=== PATIENT | female | born 1945 | race Caucasian/White ===

== ENCOUNTER 2018-10-06 03:28 | Inpatient (IN) ==
--- NOTE | 2018-09-28 09:35 | EKG Report ---
Test Performed on : 09/28/2018 09:29:04 AM Test Reason : PAT Blood Pressure : / mmHG Vent. Rate : 078 BPM Atrial Rate : 078 BPM P-R Int : 158 ms QRS Dur : 096 ms QT Int : 402 ms P-R-T Axes : 084 042 066 degrees QTc Int : 458 ms Normal sinus rhythm. Right atrial enlargement Incomplete right bundle branch block Septal infarct , age undetermined Abnormal ECG No previous ECGs available Confirmed by Woody Nova MD ([id number]) on 09/29/2018 6:35:35 AM
[2018-09-28 09:50] LABS: URINE SOURCE CLEAN CATCH
[2018-09-28 09:53] LABS: BASO# 0.02 X1000 (0.0-0.2); BASO% 0.2 % (0.0-0.8); EOS% 1.8 % (0.0-10.0); HEMATOCRIT 37.3 % (37.0-47.0); HEMOGLOBIN 11.5 g/dL (12.0-16.0); IMM GRAN# 0.03 X1000 (0.0-0.04); IMM GRAN% 0.3 % (0.0-0.5); LYMPH# 1.59 X1000 (1.2-3.4); LYMPH% 14.6 % (20.5-51.1); MCHC 30.8 g/dL (33-37); MCV 84.2 FL (81-99); MONO# 0.63 X1000 (0.11-0.59); MONO% 5.8 % (1.7-9.3); MPV 8.3 FL (7.4-10.4); NEUT# 8.45 X1000 (1.4-6.5); NEUT% 77.3 % (42.2-75.2); PLT 491 X1000 (130-400); RBC 4.43 XMIL (4.2-5.4); RDW 17.2 % (11.5-14.5); WBC 10.92 X1000 (4.8-10.8)
[2018-09-28 09:55] LABS: BILIRUBIN URINE NEGATIVE (NEGATIVE); BLOOD URINE NEGATIVE (NEGATIVE); COLOR YELLOW; GLUCOSE URINE NEGATIVE (NEGATIVE); KETONE URINE NEGATIVE (NEGATIVE); LEUKOCYTES URINE NEGATIVE (NEGATIVE); NITRITE URINE NEGATIVE (NEGATIVE); PROTEIN URINE TRACE mg/dL (NEGATIVE); SP GRAVITY URINE 1.005; TURBIDITY URINE CLEAR (CLEAR); UROBILINOGEN URINE NORMAL (NORMAL)
[2018-09-28 09:56] LABS: UR EPITHELIAL CELLS <10 /HPF (<10); URINE BACTERIA NEGATIVE /HPF; URINE RBC <10 /HPF (<10); URINE WBC <10 /HPF (<10)
[2018-09-28 10:06] LABS: INR 0.87; PROTIME 12.6 Seconds (11.0-16.0)
[2018-09-28 10:07] LABS: PTT 26.4 Seconds (22.3-41.8)
[2018-09-28 10:20] LABS: AGAP 12; BUN 10 mg/dL (8-22); CALCIUM 9.6 mg/dL (8.8-10.2); CHLORIDE 98 mmol/L (98-107); COSMO 274; CREATININE 0.7 mg/dL (0.5-0.9); ESTIMATED GFR > 60; GLUCOSE 112 mg/dL (70-104); SODIUM 137 mmol/L (136-145); TCO2 27 mmol/L (25-35)
[2018-10-06] MEDS ORDERED: PEPCID ONE (07:15)
[2018-10-06] MEDS ORDERED: REGLAN ONE (07:15)
[2018-10-06] MEDS ORDERED: COLACE ONE (07:15)
[2018-10-06] MEDS ORDERED: LYRICA ONE (07:16)
[2018-10-06] MEDS ORDERED: CELEBREX ONE (07:17)
[2018-10-06] MEDS ORDERED: LR 1,000 ML ONE (07:17)
[2018-10-06] MEDS ORDERED: KEFZOL 1 GM/D5W 1 GM/50 ML IVPB ONE (07:17)
[2018-10-06] MEDS ORDERED: SODIUM CHLORIDE 0.9% 10 ML ONE ×2 (07:49→09:36)
[2018-10-06] MEDS ORDERED: NORCURON ONE (07:49)
[2018-10-06] MEDS ORDERED: DIPRIVAN 1% ONE (07:49)
[2018-10-06] MEDS ORDERED: QUELICIN (DOSE) ONE (07:49)
[2018-10-06] MEDS ORDERED: XYLOCAINE-MPF 2% ONE (07:49)
[2018-10-06] MEDS ORDERED: SENSORCAINE-MPF 0.5%/EPI 1:200,000 ONE (08:05)
[2018-10-06] MEDS ORDERED: DURAMORPH ONE (08:05)
[2018-10-06] MEDS ORDERED: SODIUM CHLORIDE 0.9% ONE (08:05)
[2018-10-06] MEDS ORDERED: VANCOMYCIN ONE (08:05)
[2018-10-06] MEDS ORDERED: CYKLOKAPRON 1,000 MG/NS 1,000 MG/100 ML IVPB ONE (08:05)
[2018-10-06] MEDS ORDERED: TORADOL ONE (08:05)
[2018-10-06] MEDS ORDERED: EXPAREL 1.3% ONE (08:06)
[2018-10-06] MEDS ORDERED: NEOSPORIN G.U. IRRIGANT ONE (08:06)
[2018-10-06] MEDS ORDERED: DECADRON ONE (08:52)
[2018-10-06] MEDS ORDERED: ZOFRAN ONE (08:52)
[2018-10-06] MEDS ORDERED: OFIRMEV 1000 MG/ISOTONIC SOLN 1,000 MG/100 ML BOTTLE ONE (08:52)
[2018-10-06] MEDS ORDERED: DILAUDID ONE (09:07)
[2018-10-06] MEDS ORDERED: EPHEDRINE ONE (09:16)
[2018-10-06] MEDS ORDERED: NEO-SYNEPHRINE ONE (09:36)
[2018-10-06] MEDS ORDERED: ROBINUL ONE ×2 (09:51)
[2018-10-06] MEDS ORDERED: NEOSTIGMINE ONE (09:57)
[2018-10-06] MEDS ORDERED: NS 1,000 ML ONE (10:32)
--- NOTE | 2018-10-06 10:33 | OPERATIVE NOTE ---
PROCEDURE DATE: 10/06/2018 PREOPERATIVE DIAGNOSIS: Right glenohumeral arthritis. POSTOPERATIVE DIAGNOSIS: Right glenohumeral arthritis. PROCEDURE: Right reverse total shoulder arthroplasty with DePuy Delta XTEND size 12 press-fit stem, a 38, +6 humeral cup, a 38 eccentric glenosphere, and a standard metaglene. SURGEON: Edenilson Campos MD HOME IMPROVEMENT CONTRACTOR: LEAH Melgoza SECOND CHEMICAL PRODUCTION MACHINE OPERATOR: Walter Grant RN ANESTHESIA: General. IV FLUIDS: 1500 mL lactated Ringer's. ESTIMATED BLOOD LOSS: 100 mL. COMPLICATIONS: None. INDICATION: The patient is a 73-year-old female with a chronic history of pain and discomfort in her right shoulder. X-rays revealed significant degenerative arthritis, and recommendation to proceed with right reverse shoulder arthroplasty was offered. Risks and benefits of surgery were explained, including the risks of anesthesia, , bleeding, infection, failure to relieve pain, postoperative stiffness, nerve injury, blood clots, and other imponderables. All questions were answered. The patient wished to proceed with surgery. DETAILS OF OPERATION: The patient was taken to the operating room and placed supine on the operating table. Once adequate anesthesia was obtained, the patient was placed in semi-Mariano beach-chair position. The right shoulder was subsequently prepped and draped in the usual sterile fashion. A standard deltopectoral incision was made with skin knife. Hemostasis was obtained using electrocautery. Deltopectoral incision was then made. The hemostasis was attained electrocautery. The deltopectoral interval was then developed. Retractors were then placed. Attention was then turned to the subscapularis tendon and stay sutures placed. Approximately 1 cm medial to its insertion, this was released. After this had been performed, the intramedullary guide was placed in the proximal humerus after releasing the superior and posterior superior aspects of the rotator cuff. A starting reamer was passed. Intramedullary guide with [*]cutting block was pinned in position. The humeral head was then resected. A protective disk was then placed. Attention was then turned to the glenoid. Circumferential dissection was performed. The patient has significant degenerative arthritic changes. A guide was then placed in position and guide pin was placed. Reaming was then conducted, followed by a standard metaglene. This was impacted into position. One locking screw and 3 nonlocking screws were placed and had excellent purchase. The wound was copiously irrigated. A 38 eccentric glenosphere was then placed with the eccentricity placed inferiorly. Attention was then turned to the intramedullary canal. Intramedullary guide was placed in position in approximately 15 degrees retroversion. Reaming was then conducted proximally. Copious irrigation was then performed with antibiotic pulsatile lavage. A size 10 press-fit stem was then placed and had excellent purchase. After this had been performed, the trial cup was sized. A 38, +6 humeral cup appeared to the correct size. The. The trial cup was removed. The wound was copiously irrigated once again. A 38, +6 humeral cup was then placed and the shoulder was reduced, carried through range of motion, and had good range of motion and good stability. Exparel was placed in the deep soft tissue. A #2 FiberWire was then used to repair the subscapularis tendon in an interrupted fashion after irrigation had been conducted. The remaining portion of the Exparel was then placed in the deep soft tissue, as well as the subcutaneous tissue. The wound was copiously irrigated once again. A 2-0 Vicryl then used the subcutaneous tissue, followed by running 2-0 Prolene. Benzoin and Steri-Strips were applied. Adaptic, sterile 4x4's, ABD pad, and tape were applied to the right shoulder, followed by a sterile immobilizer. All counts were correct. Patient tolerated the procedure and was transferred to the recovery room in stable condition. cc: Edenilson Campos MD
[2018-10-06 10:56] LABS: URINE SOURCE CATH
[2018-10-06 11:01] LABS: BILIRUBIN URINE NEGATIVE (NEGATIVE); BLOOD URINE NEGATIVE (NEGATIVE); COLOR YELLOW; GLUCOSE URINE NEGATIVE (NEGATIVE); KETONE URINE NEGATIVE (NEGATIVE); LEUKOCYTES URINE NEGATIVE (NEGATIVE); NITRITE URINE NEGATIVE (NEGATIVE); PROTEIN URINE NEGATIVE (NEGATIVE); SP GRAVITY URINE 1.009; TURBIDITY URINE CLEAR (CLEAR); UR EPITHELIAL CELLS <10 /HPF (<10); URINE BACTERIA NEGATIVE /HPF; URINE RBC <10 /HPF (<10); URINE WBC <10 /HPF (<10); UROBILINOGEN URINE NORMAL (NORMAL)
--- NOTE | 2018-10-06 11:14 | Diag Imaging Result Doc PS360 ---
EXAM: SHOULDER 1 VIEW RIGHT HISTORY: post op TECHNIQUE: Portable right shoulder single view COMPARISON: 12/20/2014 FINDINGS: There has been orthopedic replacement of the right shoulder since the prior exam. Good positioning in the glenoid. No separation at the common clavicular joint. Electronically signed by Kvng Macdonald 10/06/2018 11:12 AM
[2018-10-06] MEDS ORDERED: ZOFRAN PO PRN (12:30)
[2018-10-06] MEDS ORDERED: MORPHINE IV PRN ×3 (12:30)
[2018-10-06] MEDS ORDERED: OXY IR PO PRN ×2 (12:30)
[2018-10-06] MEDS ORDERED: CYKLOKAPRON 1,000 MG in NS 100 ML IV ONE (15:00)
[2018-10-06] MEDS ORDERED: ROBAXIN PO PRN (15:44)
[2018-10-06] MEDS ORDERED: ZOFRAN ODT PO PRN (15:44)
[2018-10-06] MEDS: KEFZOL 1 GM/D5W 1 GM/50 ML IVPB IV SCH ×2 (16:25→23:39)
[2018-10-06] MEDS: NS 1,000 ML IV SCH ×2 (16:38→23:40)
[2018-10-06] MEDS: PERIDEX MT SCH (20:26)
[2018-10-06] MEDS ORDERED: LIPITOR PO SCH (21:00)
--- NOTE | 2018-10-07 06:23 | PROGRESS NOTE ---
DATE: 10/07/2018 SUBJECTIVE: The patient is a pleasant 73-year-old female who is 1 day status post right reverse shoulder arthroplasty. She is currently resting comfortably. OBJECTIVE: On physical exam, the patient's right upper extremity dressing is intact. She is neurovascularly intact distally. Good micro paleontologist strength. LABS: Pending. IMPRESSION: Postoperative day #1 status post right reverse shoulder arthroplasty. PLAN: At this point, we will change her dressing and will plan on discharging home. We will arrange for home physical therapy. The patient will follow up in the office on 10/18/2018. cc: Edenilson Campos MD
[2018-10-07 06:36] LABS: HEMATOCRIT 29.9 % (37.0-47.0); HEMOGLOBIN 9.2 g/dL (12.0-16.0)
[2018-10-07 06:55] LABS: AGAP 12; BUN 12 mg/dL (8-22); CALCIUM 8.4 mg/dL (8.8-10.2); CHLORIDE 102 mmol/L (98-107); COSMO 273; CREATININE 0.7 mg/dL (0.5-0.9); ESTIMATED GFR > 60; GLUCOSE 89 mg/dL (70-104); POTASSIUM 4.3 mmol/L (3.5-5.1); SODIUM 137 mmol/L (136-145); TCO2 23 mmol/L (25-35)
[2018-10-07 07:21] VITALS: BP 156/84
[2018-10-07] MEDS: PERIDEX MT SCH (08:06)
[2018-10-07] MEDS ORDERED: HYZAAR 50/12.5 MG PO SCH (09:00)
[2018-10-07] MEDS ORDERED: PEPCID PO SCH (09:00)
== END 2018-10-07 12:05 | disposition home health service (06) | DRG 483 ==
LOC: SURHOLD 03:28 → 4N 08:47
PROVIDERS: ADMIT Orthopaedic Surgery Adult Reconstructive Orthopaedic Surgery; ATTEND Orthopaedic Surgery Adult Reconstructive Orthopaedic Surgery
CPT/HCPCS: 73020; 80048; 81001; 85014; 85018; 85025; 85610; 85730; 86850; 86900; 86901; 93005; 93010; 94761; 94799; 97162; 97530; A9270; C9290; J0131; J0330; J0690; J1100; J1170; J1885; J2274; J2275; J2370; J2405; J3370; J7030; J7120; Q9974

== ENCOUNTER 2018-11-27 19:34 | Inpatient (IN) ==
[2018-11-27] MEDS ORDERED: ZOFRAN IV ONE (21:35)
[2018-11-27] MEDS ORDERED: NS 1,000 ML IV ONE (21:36)
[2018-11-27] MEDS ORDERED: ASPIRIN PO ONE (21:47)
[2018-11-27 22:05] LABS: BASO# 0.01 X1000 (0.0-0.2); BASO% 0.1 % (0.0-0.8); HEMATOCRIT 42.2 % (37.0-47.0); HEMOGLOBIN 13.7 g/dL (12.0-16.0); LYMPH# 0.62 X1000 (1.2-3.4); LYMPH% 7.1 % (20.5-51.1); MCH 25.7 PG (27-31); MCHC 32.5 g/dL (33-37); MONO# 0.28 X1000 (0.11-0.59); MONO% 3.2 % (1.7-9.3); MPV 8.8 FL (7.4-10.4); NEUT# 7.82 X1000 (1.4-6.5); NEUT% 89.6 % (42.2-75.2); PLT 466 X1000 (130-400); RBC 5.34 XMIL (4.2-5.4); RDW 16.1 % (11.5-14.5); WBC 8.73 X1000 (4.8-10.8)
--- NOTE | 2018-11-27 22:22 | Diag Imaging Result Doc PS360 ---
CHEST-2 VIEWS - 11/27/2018 INDICATION: cp COMPARISON: None FINDINGS: The lungs are normally expanded and clear. Heart size and mediastinal contours are normal. No pneumothorax or pleural effusion. IMPRESSION: Negative exam. Electronically signed by Evangelist Donohue 11/27/2018 10:20 PM
[2018-11-27 22:24] LABS: AGAP 20; ALB/GLOB RATIO 1.5; ALBUMIN 5.1 g/dL (3.5-5.0); ALKALINE PHOSPHATASE 116 U/L (32-104); BUN 13 mg/dL (8-22); CALCIUM 10.2 mg/dL (8.8-10.2); CHLORIDE 91 mmol/L (98-107); COSMO 273; CREATININE 0.6 mg/dL (0.5-0.9); ESTIMATED GFR > 60; GLUCOSE 152 mg/dL (70-104); GOT 27 U/L (10-30); GPT 20 U/L (10-36); LIPASE 32 U/L (13-60); POTASSIUM 3.6 mmol/L (3.5-5.1); SODIUM 135 mmol/L (136-145); TCO2 24 mmol/L (25-35); TOTAL BILIRUBIN 0.45 mg/dL (0.20-1.00); TOTAL PROTEIN 8.6 g/dL (6.3-8.3)
[2018-11-27 22:34] LABS: INR 0.9; PROTIME 12.9 Seconds (11.0-16.0)
[2018-11-27 22:35] LABS: PTT 24.7 Seconds (22.3-41.8)
[2018-11-27 22:43] LABS: CK INDEX 3.1 (0.0-2.5); CK-MB 10.99 ng/mL (0.0-5.0)
[2018-11-27] MEDS ORDERED: LABETALOL IV ONE (23:04)
[2018-11-28] MEDS ORDERED: SODIUM CHLORIDE 0.9% INJ ONE (00:07)
[2018-11-28] MEDS ORDERED: PHENERGAN IV ONE (00:07)
[2018-11-28] MEDS ORDERED: REGLAN IV ONE (00:13)
[2018-11-28] MEDS ORDERED: VASOTEC IV ONE (00:13)
--- NOTE | 2018-11-28 00:16 | PROVIDER DOCUMENTATION ---
This chart was entered by Holly Michelle Scribe, acting as scribe for Josephine Estrada MD. HPI-Abdominal Pain/GI Problem - General Chief Complaint: Vomiting Stated Complaint: VOMITING Time Seen by Provider: 11/27/18 21:31 Source: patient Allergies/Adverse Reactions: Patient Allergies Allergy/AdvReac Type Severity Reaction Status Date / Time hydrocodone AdvReac VOMITING Verified 09/28/18 09:11 meperidine [From Demerol] AdvReac VOMITING Verified 07/26/18 20:49 Home Medications: Home Medication List Medication Instructions Recorded Confirmed Last Taken Type Ondansetron Odt [Zofran Odt] 4 mg PO Q6H PRN PRN #20 tab 07/26/18 10/06/18 10/05/18 11:00 Rx ATORVAstatin [Lipitor] 20 mg PO QHS 09/28/18 10/06/18 10/05/18 22:00 History Famotidine 20 mg PO DAILY 09/28/18 10/06/18 10/05/18 22:00 History Ibuprofen 800 mg PO PRN PRN 09/28/18 09/28/18 Unknown History Losartan/Hydrochlorothiazide 1 each PO DAILY 09/28/18 10/06/18 10/05/18 22:00 History [Hyzaar 50-12.5 Tablet] Methocarbamol 750 mg PO PRN PRN 09/28/18 10/06/18 10/05/18 15:00 History Tramadol [Ultram] 50 mg PO Q6H PRN PRN 09/28/18 10/06/18 10/05/18 15:00 History Docusate Sodium [Colace] 100 mg PO BID #40 capsule 10/07/18 Unknown Rx Oxycodone I.r. [Oxy Ir] 5 mg PO Q4-6H PRN PRN #40 capsule 10/07/18 Unknown Rx - History of Present Illness-ABD Nature of Presenting Problems: Pt is 73/F presenting to ED w/ n/v x8 since 11am this morning. Still feels nauseous. No C/P, no diaphoresis Abdominal Pain Onset Location: reports: epigastric Pain Radiation: reports: no radiation Quality of Pain: reports: other (nauseous) Severity in ED: reports: moderate Onset/Duration: reports: this morning Timing: reports: still present Activities at Onset: reports: none Exposure to sick contacts?: No Modifying Factors: improves with: nothing Associated Symptoms: reports: nausea, vomiting. denies: diarrhea, fever/chills Last BM: unsure Dark Stools Present?: reports: none noticed Rectal Bleeding: reports: none Rectal Pain: reports: none Emesis Description: reports: none Bruising or Bleeding Gums?: No Similar Symptoms Previously?: No Recently seen or treated by another doctor?: No Review of Systems - Adult - REVIEW OF SYSTEMS - ADULT Constitutional: reports: no symptoms reported. denies: chills, fever Eyes: reports: no symptoms reported Ears, Nose, Mouth & Throat: reports: no symptoms reported Cardiovascular: reports: no symptoms reported Respiratory: reports: no symptoms reported. denies: cough, shortness of breath, wheezing Gastrointestinal: reports: no symptoms reported, nausea, vomiting. denies: abdominal pain, diarrhea Genitourinary: reports: no symptoms reported Musculoskeletal: reports: no symptoms reported Integumentary: reports: no symptoms reported Neurological: reports: no symptoms reported. denies: dizziness/vertigo, headache/migraines Psychiatric: reports: no symptoms reported Endocrine: reports: no symptoms reported Hematologic/Lymphatic: reports: no symptoms reported Allergic/Immunologic: reports: no symptoms reported All Other Systems: Reviewed and Negative Past History - Adult - PAST MEDICAL HISTORY-ADULT Review of Records: reports: Old Records Reviewed, Nursing Assessment Review, Medications Reviewed, Social history reviewed & non-contributory. Major Childhood Illnesses: reports: denies history Cardiovascular: reports: denies history Respiratory: reports: denies history Gastrointestinal: reports: denies history Obstetrical/Gynecological: reports: denies history Genitourinary: reports: denies history Musculoskeletal: reports: denies history Neurological: reports: denies history Psychiatric: reports: denies history Endocrine/Immune: reports: denies history - PRIOR SURGERIES/PROCEDURES Surgical/Procedure History: reports: appendectomy, cholecystectomy, hysterectomy , tonsillectomy - SOCIAL HISTORY Smoking: quit greater than 1 year Substance Use: alcohol Alcohol Use Frequency: every day Number of drinks per typical drinking period:: 2 drinks Physical Exam-General - PHYSICAL EXAM-ADULT Initial Vital Signs Reviewed: Yes - CONSTITUTIONAL General Appearance: appears well, alert, no apparent distress - EYES Eyes: PERRL/EOMI, pink conjunctivae - HEAD, EARS, NOSE, MOUTH & THROAT HENMT: normocephalic/atraumatic, moist mucous membranes, normal ENT inspection, TMs normal, pharynx normal - NECK Neck: non-tender, full range of motion, supple, normal inspection - RESPIRATORY Respiratory: lungs clear - CARDIOVASCULAR Cardiovascular: regular rate, rhythm - GASTROINTESTINAL (ABDOMEN) Abdominal Exam: normal bowel sounds, non tender, soft - LYMPHATIC Lymphatic: no adenopathy - MUSCULOSKELETAL Back Exam: normal inspection, no CVA tenderness, no vertebral tenderness Extremity: normal range of motion, non-tender, normal gait, normal inspection - SKIN Integumentary: normal color, warm/dry - NEUROLOGIC Neurologic: grossly normal - PSYCHIATRIC Psych/Mental Status: normal mood/affect, normal thought content, normal thought process, oriented x 3 Progress - PLAN OF CARE/RESULTS Progress/Plan/Lab Results: Vital Signs - 8 hr 11/27/18 19:39 11/27/18 21:17 11/27/18 21:31 Temperature 97.8 F Pulse Rate 108 H Respiratory Rate 20 Blood Pressure 203/102 216/119 158/140 O2 Sat by Pulse Oximetry 96 99 99 Laboratory Results - last 24 hr 11/27/18 21:30 WBC 8.73 RBC 5.34 Hgb 13.7 Hct 42.2 MCV 79.0 L MCH 25.7 L MCHC 32.5 L RDW Std Deviation 16.1 H Plt Count 466 H MPV 8.8 Immature Gran % (Auto) 0.0 Neut % (Auto) 89.6 H Lymph % (Auto) 7.1 L [place] % (Auto) 3.2 Eos % (Auto) 0.0 Baso % (Auto) 0.1 Immature Gran # (Auto) 0.00 Neut # (Auto) 7.82 H Lymph # (Auto) 0.62 L [place] # (Auto) 0.28 Eos # (Auto) 0.00 Baso # (Auto) 0.01 Orders Category Date Time Status Cardiac Monitoring DIRECTED Care 11/27/18 21:47 Active Oxygen Therapy- ED Nursing DIRECTED Care 11/27/18 21:47 Active Saline Loc NOW Care 11/27/18 21:47 Active CHEST-2 VIEWS [RAD] Stat Exams 11/27/18 21:[address] ABD/PELVIS W/IV CONT ONLY [CT] Stat Exams 11/27/18 21:36 Ordered CBC WITH ELECTRONIC DIFF [HEME] Stat Lab 11/27/18 21:30 Completed CK PROFILE [SP CHEM] Stat Lab 11/27/18 21:30 Received COMPREHENSIVE METABOLIC PANEL [CHEM] Stat Lab 11/27/18 21:30 Received LIPASE [CHEM] Stat Lab 11/27/18 21:30 Received PROTIME WITH INR [COAG] Stat Lab 11/27/18 21:30 Received PTT [COAG] Stat Lab 11/27/18 21:30 Received TROPONIN T Stat Lab 11/27/18 21:30 Received 0.9% Sodium Chloride Inj [Ns] 1,000 ml Med 11/27/18 21:36 Active IV 999 mls/hr Aspirin Med 11/27/18 21:47 Discontinued 325 mg PO NOW ONE Ondansetron [Zofran] Med 11/27/18 21:35 Discontinued 4 mg IV NOW ONE CP/SOB/Palp >45 yrs of Age Stat Oth 11/27/18 21:47 Ordered EKG [EKG] Stat Ther 11/27/18 21:47 Ordered Result Diagrams: 11/27/18 21:30 11/27/18 21:30 - REASSESSMENT Reassessment #1 Time Reassessed: 00:16 (continued with vomting despite zofran. bp still elevated after labetolol. will admit pt. ) Status: unchanged - EKG 1 Time of EKG reading by physician:: 21:48 EKG Read and Signed by:: Josephine Estrada EKG Interpretation (*Must complete 3 of following elements*): Abnormal (Normal sinus rhythm, Left axis deviation, Left ventricular hypertrophy with repolarization abnormality. Prolonged QT. Abnormal ECG) Rate: 94 Rhythm: sinus [place]: normal - XRAY 1 XRAY: Bilateral XRAY Study: Chest Impression: Normal (IMPRESSION: Negative exam. Electronically signed by Evangelist Donohue 11/27/2018 10:20 PM 11/27/180) Departure - Departure Date of Disposition Decision: 11/28/18 Time of Disposition Decision: 00:15 DIAGNOSIS: Intractable nausea and vomiting, Hypertensive urgency Disposition: ADMITTED INPATIENT 09 Certified Medical Emergency: Emergent Condition: Fair Referrals and Follow-Ups: Radha Ramos MD [Primary Care Provider] - - Critical Care Note This patient required my direct & personal management of CC.: No Attestation - Physician/ NICK Attestation Patient care was provided by Advanced Practice Provider:: No The physician spent face to face time with patient:: Yes Advanced Practice Provider documentation review:: Supervising physician onsite and consulted in the evaluation and care of this patient. The physician did have a face to face encounter with the patient. This chart was documented by the indicated scribe, (Holly Michelle, Luisibe) and accurately reflects the services I performed and decisions made by me, Josephine Estrada MD, as attested by the provider's signature.
[2018-11-28] MEDS ORDERED: ATIVAN IV ONE (00:32)
[2018-11-28] MEDS ORDERED: CATAPRES PO PRN (02:11)
--- NOTE | 2018-11-28 05:02 | HISTORY AND PHYSICAL ---
PRIMARY CARE PHYSICIAN: Dr. Ramos. CHIEF COMPLAINT: Nausea and vomiting. HISTORY OF PRESENTING ILLNESS: A 73-year-old female with a history of hypertension and hyperlipidemia, who presented to emergency department with 1-day history of having intractable nausea, vomiting. Patient states that it was not improving. She felt weak. Subsequently had come to the emergency department. In the ED, she was evaluated. She received antiemetics. However, she did not have any significant improvement, still was nauseated. It was also noted that her blood pressure was markedly elevated. She was put on antihypertensive agents. However, she will require admission for further monitoring. At the time of my examination, she denied any headache, fever, chills, chest pain, shortness of breath, hemoptysis or weight changes, but complained of nausea, vomiting. PAST MEDICAL HISTORY: Includes hypertension, hyperlipidemia. PAST SURGICAL HISTORY: Right total knee arthroplasty, right shoulder arthroplasty, hysterectomy and appendectomy. ALLERGIES: Demerol and codeine. CURRENT MEDICATIONS: Include Lipitor 20 mg p.o. at bedtime, famotidine 20 mg p.o. daily, Losartan HCT 50/12.5 one p.o. daily, methocarbamol 750 mg p.o. daily, oxycodone 5 mg p.o. q.4-6 hours p.r.n., tramadol 50 mg p.o. q.6 hours. SOCIAL HISTORY: She denies any history of smoking. Admits to drinking vodka about 3 glasses daily. Denies any illicit drug use. FAMILY HISTORY: No history of coronary artery disease. REVIEW OF SYSTEMS: Fourteen point review of systems as listed in HPI. Other systems negative. PHYSICAL EXAMINATION: GENERAL: Cooperative, friendly female. She is resting more comfortably now. VITAL SIGNS: Temperature 97.8 degrees, pulse 108, respirations 20, blood pressure 203/102, repeat then was 158/140. HEENT: Atraumatic, normocephalic. Extraocular movements intact. PERRLA. NECK: No masses. CHEST: Clear to auscultation. CARDIOVASCULAR: Regular rate and rhythm. ABDOMEN: Soft. Positive bowel sounds. EXTREMITIES: No edema. NEUROLOGIC: She is awake, alert, oriented x3. GENITOURINARY: No bladder distention. SKIN: Warm. LABORATORIES AND STUDIES: WBCs 8.73, hemoglobin 13.7, hematocrit 42.2, platelets 466,000. Sodium 135, potassium 3.6, chloride 91, CO2 24, BUN is 13, creatinine 0.6, glucose 152. Troponin 0.010. ASSESSMENT: A 73-year-old female with a history of hypertension and hyperlipidemia presented to the emergency department with 1-day history of having persistent intractable nausea, vomiting. She was evaluated in the emergency department. It was also noted that her blood pressure was markedly elevated. Due to these findings, it was thought that she would require admission for further management. 1. Intractable nausea, vomiting. 2. Hypertension, uncontrolled. PLAN: 1. We will admit patient to medical floor with telemetry. 2. We will continue with supportive treatment with gentle hydration, antiemetics. 3. We will monitor blood pressure closely. Resume antihypertensive agent. 4. Put patient on DVT prophylaxis with SCD. 5. We will continue to follow, reassess and make further recommendation based on patient's clinical course. cc: Zach Gifford MD
--- NOTE | 2018-11-28 08:52 | Diag Imaging Result Doc PS360 ---
CT ABD/PELVIS W/IV CONT ONLY - 11/27/2018 INDICATION: abd pain COMPARISON: None FINDINGS: The lung bases are clear and the heart size is normal. There is a solitary right kidney. There are several benign right renal cysts measuring up to 2.7 cm. No renal stones or obstruction. Otherwise all abdominal organs are normal. No bowel obstruction or inflammation. Normal appendix. Mild diverticulosis of the sigmoid colon. There is advanced vascular disease of the distal abdominal aorta and its pelvic branches. Uterus is absent. Urinary bladder and rectum are normal. 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 IMPRESSION: Solitary right kidney. Diverticulosis coli. No acute process. This exam was performed using automated exposure control, adjustment of mA or kV according to patient size, and/or use of iterative reconstruction technique Electronically signed by Evangelist Donohue 11/28/2018 8:50 AM
[2018-11-28] MEDS ORDERED: DULCOLAX PR ONE (09:51)
[2018-11-28] MEDS ORDERED: ZOFRAN IV PRN (09:53)
[2018-11-28 10:15] LABS: FERRITIN 85 ng/mL (13-150)
[2018-11-28 10:17] LABS: IRON SATURATION 6 %; TIBC 385 ug/dL; TOTAL IRON 25 ug/dL (49-151); UNBOUND IRON 360 ug/dL (112-346)
--- NOTE | 2018-11-28 11:04 | PROGRESS NOTE ---
DATE: 11/28/2018 SUBJECTIVE: Ms. Jacobs was admitted early this morning. She presented with a 2-day history of intractable nausea and vomiting. Ms. Jacobs is a 73-year-old female who follows up with Dr. Ramos for cholesterol and hypertension management. She refers to be chronically constipated and uses Colace every now and then. She said since yesterday, she has been remarkably nauseated and has been vomiting multiple times. She came to the emergency department where she was admitted for intractable nausea and vomiting. This morning, she has not had any vomiting. OBJECTIVE: Her vital signs are blood pressure 147/98, pulse is 95, respirations 20, temperature 99.0. The patient is saturating 99% on room air. General: Ms. Jacobs is a 73-year-old female. She is in bed. Mucosa is pink but dry. Anicteric and acyanotic. Neck is supple. Chest: Good air entry bilaterally. No crepitations. No rhonchi. Cardiovascular: Regular rate and rhythm. There is no murmur, no rub and no gallop. GI: Abdomen is soft. It is nontender. Bowel sounds present. Extremities: No pedal edema. Distal pulses present. TIRE BALANCER: The patient is awake, alert and oriented. There is no focal neurological deficit. DIAGNOSTIC DATA: No laboratory data for today. Yesterday's lab work has been reviewed. IMAGING STUDIES: A CT scan of the abdomen and pelvis shows solitary right kidney, diverticulosis, no acute process. I think there is some constipation as well which was not reported. A chest x-ray was unremarkable except for recent right shoulder arthroplasty. ASSESSMENT: 1. Intractable nausea and vomiting. Seems to be a lot better on current management. 2. Chronic constipation. We instituted the patient on bowel regimen. 3. Chronic NSAID use, concerning for possible gastritis/possible PUD. The patient has been counseled about the side effects of the ibuprofen and has been recommended only Tylenol, and we started her on PPI. If her GI symptoms do not get any better, we will ask GI to evaluate her for possible EGD. 4. Uncontrolled hypertension. The patient has been started on her home medication; however, we have held to hydrochlorothiazide. 5. Clinical volume depletion secondary to gastrointestinal loss. We started the patient on gentle IV fluids and will reevaluate her hydration status in the morning. 6. History of solitary kidney. 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 The patient is not able to elaborate more on that. The right kidney on the imaging seems to be fairly normal with some cysts. We will avoid any nephrotoxin. The patient's kidney function seems to be fairly normal. 7. Microcytosis, questionable for underlying iron deficiency. We will do iron studies. 8. Advanced atherosclerosis of the splenic arteries. The patient is on statin drugs. 9. Dyslipidemia. We will continue with home medications. PLAN: In general, Ms. Jacobs seems to be doing a lot better this morning. We are going to start her on full liquid diet and see if she is able to tolerate it. We will start her on IV PPI and bowel regimen. Reevaluate her in the morning and make changes accordingly. If her GI symptoms do not get improvement with initial management, we will get GI to evaluate her. cc: Héctor Hernandez MD
[2018-11-28] MEDS ORDERED: VENOFER 200 MG in NS 100 ML IV ONE (13:53)
[2018-11-28] MEDS: CULTURELLE PO SCH ×2 (14:13→22:23)
[2018-11-28] MEDS: SODIUM CHLORIDE 0.9% INJ SCH (14:13)
[2018-11-28] MEDS: MIRALAX PO SCH (14:13)
[2018-11-28] MEDS: PROTONIX IV SCH (14:13)
[2018-11-28] MEDS: PRINIVIL PO SCH (14:14)
[2018-11-28 14:15] LABS: URINE SOURCE CLEAN CATCH
[2018-11-28] MEDS: NS 1,000 ML IV SCH (14:21)
[2018-11-28 14:27] LABS: BILIRUBIN URINE NEGATIVE (NEGATIVE); BLOOD URINE MODERATE (NEGATIVE); COLOR YELLOW; GLUCOSE URINE 70 mg/dL (NEGATIVE); KETONE URINE 20 mg/dL (NEGATIVE); LEUKOCYTES URINE NEGATIVE (NEGATIVE); NITRITE URINE NEGATIVE (NEGATIVE); PH URINE 7.5; PROTEIN URINE 600 mg/dL (NEGATIVE); SP GRAVITY URINE 1.024; TURBIDITY URINE CLEAR (CLEAR); UROBILINOGEN URINE NORMAL (NORMAL)
[2018-11-28 14:28] LABS: UR EPITHELIAL CELLS <10 /HPF (<10); URINE BACTERIA NEGATIVE /HPF; URINE RBC <10 /HPF (<10); URINE WBC <10 /HPF (<10)
[2018-11-28] MEDS: ZOFRAN IV PRN (18:58)
[2018-11-28] MEDS: NORVASC PO SCH (22:23)
[2018-11-28] MEDS: COLACE PO SCH (22:23)
[2018-11-29] MEDS: NS 1,000 ML IV SCH ×2 (06:46→21:01)
[2018-11-29 07:52] LABS: BASO# 0.02 X1000 (0.0-0.2); BASO% 0.2 % (0.0-0.8); EOS# 0.05 X1000 (0.0-0.7); EOS% 0.6 % (0.0-10.0); HEMATOCRIT 36.8 % (37.0-47.0); HEMOGLOBIN 11.8 g/dL (12.0-16.0); IMM GRAN# 0.02 X1000 (0.0-0.04); IMM GRAN% 0.2 % (0.0-0.5); LYMPH# 1.99 X1000 (1.2-3.4); LYMPH% 22.4 % (20.5-51.1); MCH 25.9 PG (27-31); MCHC 32.1 g/dL (33-37); MCV 80.7 FL (81-99); MONO# 0.78 X1000 (0.11-0.59); MONO% 8.8 % (1.7-9.3); MPV 8.7 FL (7.4-10.4); NEUT# 6.03 X1000 (1.4-6.5); NEUT% 67.8 % (42.2-75.2); PLT 410 X1000 (130-400); RBC 4.56 XMIL (4.2-5.4); RDW 16.6 % (11.5-14.5); WBC 8.89 X1000 (4.8-10.8)
[2018-11-29 08:10] LABS: PHOSPHORUS 2.2 mg/dL (2.7-4.5)
--- NOTE | 2018-11-29 08:19 | EKG Report ---
Test Performed on : 11/27/2018 9:48:38 PM Test Reason : cp Blood Pressure : / mmHG Vent. Rate : 094 BPM Atrial Rate : 094 BPM P-R Int : 174 ms QRS Dur : 106 ms QT Int : 410 ms P-R-T Axes : 073 -33 071 degrees QTc Int : 512 ms Normal sinus rhythm. Left axis deviation Left ventricular hypertrophy with repolarization abnormality Prolonged QT Abnormal ECG When compared with ECG of 28-SEP-2018 09:29, Criteria for Septal infarct are no longer present QT has lengthened Unconfirmed Result
--- NOTE | 2018-11-29 08:20 | EKG Report ---
Test Performed on : 11/27/2018 11:40:26 PM Test Reason : CP Blood Pressure : / mmHG Vent. Rate : 087 BPM Atrial Rate : 087 BPM P-R Int : 168 ms QRS Dur : 104 ms QT Int : 426 ms P-R-T Axes : 011 -23 056 degrees QTc Int : 512 ms Normal sinus rhythm. Septal infarct , age undetermined Prolonged QT Abnormal ECG When compared with ECG of 27-NOV-2018 21:48, (Unconfirmed) Septal infarct is now present Unconfirmed Result
[2018-11-29 08:35] LABS: AGAP 11; BUN 12 mg/dL (8-22); CHLORIDE 98 mmol/L (98-107); COSMO 264; CREATININE 0.5 mg/dL (0.5-0.9); ESTIMATED GFR > 60; GLUCOSE 94 mg/dL (70-104); POTASSIUM 3.1 mmol/L (3.5-5.1); SODIUM 132 mmol/L (136-145); TCO2 23 mmol/L (25-35)
[2018-11-29] MEDS: ZOFRAN IV PRN ×3 (09:46→20:00)
[2018-11-29] MEDS: SODIUM CHLORIDE 0.9% INJ SCH ×2 (09:50→14:36)
[2018-11-29] MEDS: PROTONIX IV SCH ×3 (09:50→20:00)
[2018-11-29] MEDS: MIRALAX PO SCH (09:54)
[2018-11-29] MEDS: PRINIVIL PO SCH (09:54)
[2018-11-29] MEDS: CULTURELLE PO SCH ×2 (09:54→20:09)
[2018-11-29] MEDS: NORVASC PO SCH ×2 (09:54→20:00)
[2018-11-29 10:09] LABS: CALCIUM 8.5 mg/dL (8.8-10.2)
[2018-11-29] MEDS ORDERED: POTASSIUM PHOSPHATE 30 MEQ in NS 250 ML IV ONE (10:41)
[2018-11-29] MEDS: LACTULOSE PO SCH ×2 (11:55→20:01)
--- NOTE | 2018-11-29 13:43 | GASTROENTEROLOGY CONSULTATION ---
DATE: 11/29/2018 REQUESTING PHYSICIAN: Héctor Hernandez MD PRIMARY CARE DOCTOR: Radha Ramos MD REASON FOR CONSULTATION: Nausea, vomiting. HISTORY OF PRESENT ILLNESS: Ms. Jacobs is a 73-year-old female admitted on 11/29/2018 for symptoms of intractable nausea, vomiting. According to the patient, she feels weak and dehydrated. She was admitted in the hospital. She has been given IV fluids and IV antiemetics. She does admit to drinking vodka, about 3 glasses daily for many years. She has a history of reflux disease. Takes famotidine daily. She has been having nausea and vomiting at home, but since being in the hospital, she complains of nausea and epigastric pain, but denies any vomiting or vomiting blood. She denies any previous history of peptic ulcer disease. She denies any black stools. She does have history of constipation. PAST MEDICAL HISTORY: Hypertension. Hyperlipidemia. PAST SURGICAL HISTORY: Right total knee arthroplasty. Right shoulder arthroplasty. Hysterectomy. Appendectomy. ALLERGIES: Demerol and codeine. MEDICATIONS IN THE HOSPITAL: Amlodipine, clonidine, Colace, Culturelle, lactulose b.i.d., lisinopril, normal saline, Zofran, Protonix which we will increase it to b.i.d. MiraLAX 17 g p.o. daily, potassium phosphate IV once. She was also given 1 dose of Dulcolax. She was given a dose of iron sucrose. REVIEW OF SYSTEMS: Denies any fevers, rigors, chills, chest pain, shortness of breath, dyspnea. Denies any vomiting blood. Does complain of feeling weak. She does have nausea and some epigastric pain. She does admit to drinking 3 glasses of vodka every day. He denies any blood in the stools. She denies any neurologic complaints. PHYSICAL EXAMINATION: Vital Signs: Temperature 97.9, pulse of 60, respiratory rate 18, blood pressure 186/98, saturating 100% on room air. General: Moderately nourished, lying in bed, in no acute distress. HEENT: Mild pallor. No icterus. Pupils equal, reactive to light. Neck: Supple. Abdomen: Soft, mild discomfort in epigastrium. No rebound. No guarding. Extremities: No cyanosis, clubbing. Neurologic: Alert, awake, oriented. BODY WEIGHT: 113 pounds 1.6 ounces, BMI 23 kg/m. LABORATORIES: Hemoglobin and hematocrit 11 and 36.8, white count of 8.89. Platelet count of 410,000. Sodium 132, potassium 3.1, chloride 98, bicarb 20, anion gap 11, BUN of 12, creatinine 0.5, glucose of 94, calcium 8.5, phosphorus 2.2, magnesium 2, iron level of 25, ferritin up to 85. Total bilirubin is 0.45, AST 27, ALT 20, alkaline phosphatase 116, total protein is 8.6, albumin of 5.1. B12 of 447, folate of 18.4. TSH 2.06. Lipase of 32. Urinalysis: Positive protein, positive glucose, positive ketones, moderate blood and plasma, alcohol level on admission was 0. IMAGING: The abdominal-pelvic CT scan on 11/27 showed solitary right kidney, diverticulosis coli, no acute process. IMPRESSION AND PLAN: 1. Intractable nausea, vomiting. This is improving. She is on IV fluids, IV antiemetics, IV Proton pump inhibitors. We will schedule her for EGD tomorrow under anesthesia with Dr. Spears to evaluate peptic ulcer disease or gastric outlet obstruction. The risks, benefits, indications, alternatives were discussed with the patient. All questions answered. 2. Chronic constipation. We will start her on bowel regimen with lactulose and MiraLAX. 3. Chronic NSAID use. The patient counseled to quit using ibuprofen. Patient also counseled to quit using alcohol every day. She is drinking 3 glasses of vodka every day. 4. Hypertension, being managed by Primary Care Team. 5. Dehydration and weakness. This is being managed by Primary Care Team. 6. Electrolyte imbalance being managed by Primary Care Team. 7. Solitary kidney on imaging. Aware. 8. Diverticulosis coli. The patient to avoid excessive corn, nuts, and seeds in diet. She will continue bowel regimen. Avoid any constipation. 9. Iron deficiency anemia. She got an iron infusion once per the Primary Care Team. Above plan discussed with the patient and all questions answered. Please call us with any further questions. cc: MD Radha Castaneda MD [facility]
--- NOTE | 2018-11-29 13:55 | Diag Imaging Result Doc PS360 ---
EXAM: US GB < RUQ (LIMITED) INDICATION: gallbladder pathology COMPARISON: 08/11/2018 FINDINGS: The gallbladder appears normal with no stones, wall thickening, or pericholecystic fluid. The common bile duct measures 7.7 mm in diameter, within normal limits for the age of the patient. Sonographic Granado's sign was reported to be negative. The liver is grossly unremarkable. Portal venous flow is hepatopetal. The visualized pancreas is unremarkable. The aorta and IVC are grossly unremarkable. There are a few simple cysts associated with the right kidney measuring up to 2.5 cm. There is no hydronephrosis. IMPRESSION: Essentially unremarkable right upper quadrant abdominal ultrasound. Electronically signed by Farhan Marroquin 11/29/2018 1:53 PM
--- NOTE | 2018-11-29 14:05 | PROGRESS NOTE ---
DATE: 11/29/2018 SUBJECTIVE: This morning Ms. Jacobs refers to be feeling nauseated and also vomiting. OBJECTIVE: Vital signs: Blood pressure was 186/98, pulse of 68, respirations 18, temperature 97.9 degrees, patient was saturating 100% on room air. General: Ms. Jacobs is a 73-year-old female. She is in bed no distress. HEENT: Mucosa is pink and moist. Anicteric. Acyanotic. Neck: Supple. Chest: Clear to auscultation. No crepitations. No rhonchi. Cardiovascular: Regular rate and rhythm. No murmurs, no rubs, no gallops. GI: Abdomen is soft. It is minimally tender in the epigastrium to the right upper quadrant. The bowel sounds were present. There was not any guarding or rebound tenderness. HIDE SHAKER: Patient is awake, alert, oriented. There is no focal neurological deficit. LABORATORY DATA: Laboratory data WBC is 8.89, hemoglobin is 11.8, platelet count of 410,000. Chemistry is also reviewed. Sodium is 132, potassium is 3.1. Phosphorus is slightly low. TSH is normal. Iron studies were reviewed and were remarkably low. ASSESSMENT: 1. Intractable nausea and vomiting. The patient has been on some clear liquids and symptomatic management for the past 24 hours. However, she continues to be remarkably symptomatic, so we will get an ultrasound of the upper quadrant to rule out any gallbladder related pathology and we will get GI to also evaluate her. 2. Chronic constipation. We will continue with bowel regimen. Patient has not responded to the MiraLAX and Dulcolax, so we will add lactulose and GI will also evaluate her. 3. Chronic NSAID use concerning for possible gastritis versus PUD. The patient has been counseled about NSAID use cessation. She is currently on PPI and GI will evaluate her. 4. Hypertension improving. 5. Clinical volume depletion, improved. 6. History of solitary kidney, noted. 7. Iron deficiency anemia. The patient has been given Venofer infusion. She will also be evaluated by GI to rule out any GI related pathology that will cause chronic GI blood loss. 8. Advanced atherosclerosis of the abdomen aorta. The patient is on statin. 9. Dyslipidemia noted. 10. Mild electrolytes abnormality including hypokalemia and hypophosphatemia. We will replace these. PLAN: So in general I think Ms. Jacobs is stable but continues to be remarkably symptomatic. Today is day 1 of hospitalization, and she presented because of intractable nausea and vomiting which she continues to have. A CT scan did show some constipation which is being treated with bowel regimen. We will consult a GI today because of persistent GI related symptoms, and also remarkable iron deficiency anemia. We will follow up with further recommendations from GI. Ms. Jacobs's disposition will depend on the rest of the hospital course. cc: Héctor Hernandez MD MTDD
[2018-11-29] MEDS: COLACE PO SCH (20:01)
[2018-11-29] MEDS ORDERED: SODIUM CHLORIDE 0.9% INJ PRN (20:06)
[2018-11-29] MEDS ORDERED: PHENERGAN IV PRN (20:06)
[2018-11-30 07:26] LABS: BASO# 0.02 X1000 (0.0-0.2); BASO% 0.3 % (0.0-0.8); EOS# 0.05 X1000 (0.0-0.7); EOS% 0.7 % (0.0-10.0); HEMATOCRIT 37.3 % (37.0-47.0); HEMOGLOBIN 11.7 g/dL (12.0-16.0); IMM GRAN# 0.02 X1000 (0.0-0.04); IMM GRAN% 0.3 % (0.0-0.5); LYMPH# 1.81 X1000 (1.2-3.4); LYMPH% 24.9 % (20.5-51.1); MCH 25.4 PG (27-31); MCHC 31.4 g/dL (33-37); MCV 81.1 FL (81-99); MONO# 0.71 X1000 (0.11-0.59); MONO% 9.8 % (1.7-9.3); MPV 8.5 FL (7.4-10.4); NEUT# 4.67 X1000 (1.4-6.5); PLT 381 X1000 (130-400); WBC 7.28 X1000 (4.8-10.8)
[2018-11-30 08:07] LABS: AGAP 5; ALB/GLOB RATIO 1.4; ALBUMIN 3.6 g/dL (3.5-5.0); ALKALINE PHOSPHATASE 83 U/L (32-104); BUN 7 mg/dL (8-22); CALCIUM 8.5 mg/dL (8.8-10.2); CHLORIDE 100 mmol/L (98-107); COSMO 262; CREATININE 0.6 mg/dL (0.5-0.9); ESTIMATED GFR > 60; GLUCOSE 88 mg/dL (70-104); GOT 21 U/L (10-30); GPT 16 U/L (10-36); POTASSIUM 2.9 mmol/L (3.5-5.1); SODIUM 132 mmol/L (136-145); TCO2 27 mmol/L (25-35); TOTAL BILIRUBIN 0.54 mg/dL (0.20-1.00); TOTAL PROTEIN 6.2 g/dL (6.3-8.3)
[2018-11-30] MEDS ORDERED: DIPRIVAN 1% ONE (08:35)
[2018-11-30] MEDS ORDERED: XYLOCAINE-MPF 2% ONE (08:42)
--- NOTE | 2018-11-30 10:11 | OPERATIVE NOTE ---
PROCEDURE DATE: 11/30/2018 PROCEDURE PERFORMED: Upper gastrointestinal endoscopy. PROVIDER: Ric Spears M.D. INDICATIONS: Nausea, vomiting. MEDICATIONS: Monitored anesthesia care. DESCRIPTION OF PROCEDURE: Prior to the procedure, history and physical was performed, and the patient's medication allergies were reviewed. The patient's tolerance to previous anesthesia was also reviewed. The risks and benefits of the procedure, sedation options, and risks were discussed with the patient. All questions were answered. Informed consent was obtained. After reviewing the risks and benefits, the patient was deemed in satisfactory condition to undergo the procedure. The endoscope was passed under direct visualization. Throughout the procedure, the patient's blood pressure, pulse, and oxygen saturations were monitored continuously. The endoscope was introduced through the mouth, and advanced to the second part of the duodenum. The upper GI endoscopy was accomplished without difficulty. The patient tolerated the procedure well. COMPLICATIONS: No immediate complications. ESTIMATED BLOOD LOSS: Minimal. FINDINGS: Normal EGD. Random gastric biopsies were obtained with cold biopsy forceps to rule out Helicobacter pylori. IMPRESSION: - Normal esophagogastroduodenoscopy. - Gastric biopsies obtained. -No etiology of nausea and vomiting found on upper endoscopy, likely infectious. Now resolved RECOMMENDATIONS: - Advance diet as tolerated. - Await pathology results. The patient is okay to be discharged from a GI standpoint after repleting her potassium. [facility]
[2018-11-30] MEDS: CULTURELLE PO SCH ×2 (10:59→20:27)
[2018-11-30] MEDS: NORVASC PO SCH ×2 (11:00→20:27)
[2018-11-30] MEDS: SODIUM CHLORIDE 0.9% INJ SCH (11:00)
[2018-11-30] MEDS: PROTONIX IV SCH ×2 (11:00→20:29)
[2018-11-30] MEDS: MIRALAX PO SCH (11:00)
[2018-11-30] MEDS: PRINIVIL PO SCH (11:00)
[2018-11-30] MEDS: LACTULOSE PO SCH ×2 (11:01→20:32)
[2018-11-30] MEDS: POTASSIUM CHLORIDE 20 MEQ/SWI 20 MEQ/100 ML IVPB IV SCH ×2 (15:27→17:47)
--- NOTE | 2018-11-30 16:21 | PROGRESS NOTE ---
DATE: 11/30/2018 SUBJECTIVE: The patient awake and asking to be discharged. OBJECTIVE: Vital signs: Temperature is 99.2 degrees, pulse 72, respirations 18, blood pressure 133/72, oxygen saturation is 98%. HEENT: Atraumatic, normocephalic. Cardiovascular System: S1, S2. Respiratory system has evidence of good air entry bilaterally. Abdomen is soft, nontender. No masses felt. Extremities: No evidence of edema. LABORATORY DATA: WBC 7.28, hematocrit is 37.3 with a platelet count of 381,000. Sodium is 132, potassium 2.9, chloride is 100, bicarbonate 27, BUN is 7, creatinine 0.6. ASSESSMENT AND PLAN: 1. Intractable nausea and vomiting. This seems to have improved. Abdominal ultrasound did not show any remarkable findings. The patient did have upper gastrointestinal endoscopic studies which were essentially normal. 2. Chronic constipation. Continue laxatives as well as stool softeners. 3. Hypertension. Controlled. Continue current regimen. 4. History of solitary kidney. Noted. 5. Iron deficiency anemia. Continue iron supplementation. 6. Advanced atherosclerosis of the abdominal aorta. We will get an MRA of the abdomen. 7. Hypokalemia. Replace potassium level and also check magnesium level at the same time. cc: Eliseo Gomez MD
[2018-11-30] MEDS: NS 1,000 ML IV SCH (17:12)
[2018-11-30] MEDS: COLACE PO SCH (20:27)
[2018-12-01] MEDS: NS 1,000 ML IV SCH (06:27)
[2018-12-01 07:52] VITALS: BP 133/68
[2018-12-01 08:13] LABS: AGAP 11; BUN 6 mg/dL (8-22); CALCIUM 8.8 mg/dL (8.8-10.2); CHLORIDE 105 mmol/L (98-107); COSMO 276; CREATININE 0.5 mg/dL (0.5-0.9); ESTIMATED GFR > 60; GLUCOSE 105 mg/dL (70-104); MAGNESIUM 1.8 mg/dL (1.5-2.7); POTASSIUM 3.6 mmol/L (3.5-5.1); SODIUM 139 mmol/L (136-145); TCO2 23 mmol/L (25-35)
[2018-12-01] MEDS: SODIUM CHLORIDE 0.9% INJ SCH (08:56)
[2018-12-01] MEDS: PROTONIX IV SCH (08:56)
[2018-12-01] MEDS: CULTURELLE PO SCH (08:56)
[2018-12-01] MEDS: NORVASC PO SCH (08:56)
[2018-12-01] MEDS: PRINIVIL PO SCH (08:56)
[2018-12-01] MEDS: LACTULOSE PO SCH (08:57)
[2018-12-01] MEDS: MIRALAX PO SCH (08:57)
[2018-12-01] MEDS ORDERED: MICARDIS PO SCH (13:00)
--- NOTE | 2018-12-01 15:05 | DISCHARGE SUMMARY ---
ADMISSION DATE: 11/29/2018 DISCHARGE DATE: 12/01/2018 PRINCIPAL DIAGNOSIS: Probable acute gastritis. SECONDARY DIAGNOSES: 1. Chronic constipation chronic use of nonsteroidal antiinflammatory drugs . 2. Solitary right kidney. 3. Diverticulosis coli. 4. Iron deficiency anemia. 5. Hypertension. 6. Hypokalemia. 7. Hematuria. DISCHARGE MEDICATIONS: Include the following. 1. Micardis 40 mg p.o. daily. 2. Atorvastatin 40 mg p.o. once a day. 3. Famotidine 20 mg p.o. daily. 4. Tramadol 50 mg every 4 to 6 hours. 5. Robaxin methocarbamol 1 to 2 tabs every 6 hours. 6. Zofran 8 mg every 6 hours as needed. PROCEDURES DONE DURING THIS HOSPITAL STAY: 1. Abdominal and pelvic CT 11/27/2018. 2. Abdominal ultrasound 11/29/2018. 3. Upper GI endoscopic studies 11/29/2018. CONSULTATIONS DONE DURING THIS HOSPITAL STAY: Dr. Melara. Gastroenterology. HOSPITAL COURSE: Ms Bertha Jacobs is a 71-year-old female with a history of hypertension, as well as hyperlipidemia who presents to the emergency department because of 1-day history of nausea with vomiting. The patient was maintained on intravenous fluids and IV antiemetics and also intravenous proton pump inhibitor. CT scan of the abdomen and pelvis showed solitary right kidney as well as diverticulosis coli. The patient subsequently had upper GI endoscopic studies which showed normal EGD. Gastric biopsies were taken. The patient seemed to have done well. She is stable. She is no longer nauseous nor is she vomiting. PHYSICAL EXAMINATION: During my evaluation today, temperature 98.4 degrees, pulse 97, respiratory rate 18, blood pressure 133/68 oxygen 99%. HEENT: Atraumatic, normocephalic. Cardiovascular: S1, S2. Respiratory system: Has evidence of good entry bilaterally. Abdomen: Soft, nontender. No masses felt. Extremities: No evidence of edema. Central nervous system: No obvious focal deficit noted. LABORATORY: Sodium is 139, potassium 3.6, chloride is 105, bicarb 23, BUN 6, creatinine 0.5. UA shows a moderate amount of blood. PLAN: The patient can be discharged home today and she can follow up with Gastroenterology Dr. Melara in the outpatient. She is noted to have blood in her urine. I will get her to follow up with Dr. Cavanaugh, Urologist as an outpatient. cc: Eliseo Gomez MD
== END 2018-12-01 14:30 | disposition home or self-care (01) | DRG 392 ==
LOC: 3N 19:34 → ED 19:34 → SUATTDRO 11-28 01:15 → 3N 11-30 17:11
PROVIDERS: ATTEND Internal Medicine
CPT/HCPCS: 71020; 71046; 74177; 76705; 80048; 80053; 80307; 80320; 81001; 82055; 82550; 82553; 82607; 82728; 82746; 83540; 83550; 83690; 83735; 84100; 84443; 84484; 85025; 85610; 85730; 88305; 88312; 93005; 96361; 96374; 96375; 99285; A9270; C9113; G0480; G6040; J1756; J2060; J2405; J2550; J2765; J3480; J7030; J7050; Q9967; S0164

== ENCOUNTER 2019-01-09 17:54 | Observation (INO) ==
--- NOTE | 2019-01-09 18:21 | PROVIDER DOCUMENTATION ---
HPI-Abdominal Pain/GI Problem - General Chief Complaint: Vomiting Stated Complaint: NAUSEA/VOMITING Time Seen by Provider: 01/09/19 18:19 Source: patient, family, old records Allergies/Adverse Reactions: Patient Allergies Allergy/AdvReac Type Severity Reaction Status Date / Time hydrocodone AdvReac VOMITING Verified 01/09/19 18:30 meperidine [From Demerol] AdvReac VOMITING Verified 01/09/19 18:30 Home Medications: Home Medication List Medication Instructions Recorded Confirmed Last Taken Type ATORVAstatin [Lipitor] 20 mg PO QHS 09/28/18 11/28/18 11/27/18 20:00 History Famotidine 20 mg PO HS 09/28/18 11/28/18 10/05/18 22:00 History Methocarbamol 1 - 2 tab PO Q6HR PRN 09/28/18 11/28/18 10/05/18 15:00 History Tramadol [Ultram] 50 mg PO Q4-6H PRN PRN 09/28/18 11/28/18 10/05/18 15:00 History Ondansetron Odt [Zofran Odt] 8 mg PO Q6H PRN PRN 11/28/18 11/28/18 Unknown History Telmisartan [Micardis] 40 mg PO DAILY tab 12/01/18 Unknown Rx - History of Present Illness-ABD Nature of Presenting Problems: Pt presents reporting ~ 7 episodes of non-bloody, non-bilious emesis since noon. She denies CHERRY or any neuro signs/symptoms incl CHERRY, diplopia, balance disorder, other visual disturbance. She denies fever; she was "well" yesterday. Records review shows similar prior presentations, pt reports this has been ongoing monthly for past 4 mos. She was admitted in November and had extensive albeit non-diagnostic work-up (incl CT, sono, EGD) as follows: ADMISSION DATE: 11/29/2018 DISCHARGE DATE: 12/01/2018 PRINCIPAL DIAGNOSIS: Probable acute gastritis. SECONDARY DIAGNOSES: 1. Chronic constipation chronic use of nonsteroidal antiinflammatory drugs . 2. Solitary right kidney. 3. Diverticulosis coli. 4. Iron deficiency anemia. 5. Hypertension. 6. Hypokalemia. 7. Hematuria. DISCHARGE MEDICATIONS: Include the following. 1. Micardis 40 mg p.o. daily. 2. Atorvastatin 40 mg p.o. once a day. 3. Famotidine 20 mg p.o. daily. 4. Tramadol 50 mg every 4 to 6 hours. 5. Robaxin methocarbamol 1 to 2 tabs every 6 hours. 6. Zofran 8 mg every 6 hours as needed. PROCEDURES DONE DURING THIS HOSPITAL STAY: 1. Abdominal and pelvic CT 11/27/2018. 2. Abdominal ultrasound 11/29/2018. 3. Upper GI endoscopic studies 11/29/2018. CONSULTATIONS DONE DURING THIS HOSPITAL STAY: Dr. Melara. Gastroenterology. HOSPITAL COURSE: Ms Bertha Jacobs is a 71-year-old female with a history of hypertension, as well as hyperlipidemia who presents to the emergency department because of 1-day history of nausea with vomiting. The patient was maintained on intravenous fluids , antiemetics and proton pump inhibitor. CT scan of the abdomen and pelvis showed solitary right kidney as well as diverticulosis coli. The patient subsequently had upper GI endoscopic studies which showed normal EGD. Gastric biopsies were taken. The patient seemed to have done well. She is stable. She is no longer nauseous nor is she vomiting. Review of Systems - Adult - REVIEW OF SYSTEMS - ADULT Constitutional: reports: no symptoms reported Eyes: reports: no symptoms reported Ears, Nose, Mouth & Throat: reports: no symptoms reported Cardiovascular: reports: no symptoms reported Respiratory: reports: no symptoms reported Gastrointestinal: reports: see HPI. denies: abdominal pain Genitourinary: reports: no symptoms reported Musculoskeletal: reports: no symptoms reported Integumentary: reports: no symptoms reported Neurological: reports: no symptoms reported Psychiatric: reports: no symptoms reported Endocrine: reports: no symptoms reported Hematologic/Lymphatic: reports: no symptoms reported Allergic/Immunologic: reports: no symptoms reported All Other Systems: Reviewed and Negative Past History - Adult - PAST MEDICAL HISTORY-ADULT Review of Records: reports: Old Records Reviewed Physical Exam-General - PHYSICAL EXAM-ADULT Initial Vital Signs Reviewed: Yes (tachy noted) - CONSTITUTIONAL General Appearance: alert, no apparent distress - EYES Eyes: PERRL/EOMI, pink conjunctivae. negative: EOM palsy, sclera injected, scleral icterus - HEAD, EARS, NOSE, MOUTH & THROAT HENMT: normocephalic/atraumatic, moist mucous membranes. negative: normal ENT inspection - NECK Neck: non-tender, full range of motion, supple - RESPIRATORY Respiratory: lungs clear, normal breath sounds - CARDIOVASCULAR Cardiovascular: normal peripheral pulses, regular rate, rhythm, no edema, tachycardia - GASTROINTESTINAL (ABDOMEN) Abdominal Exam: normal bowel sounds, non tender, soft, no organomegaly, no puls atile mass. negative: hepatomegaly, splenomegaly - GENITOURINARY Female Genitalia/Pelvic Exam: deferred Rectal Exam: deferred - LYMPHATIC Lymphatic: no adenopathy - MUSCULOSKELETAL Back Exam: normal inspection, no CVA tenderness Extremity: normal range of motion, normal gait Peripheral Pulses: radial (R): 2+, radial (L): 2+ - SKIN Integumentary: normal color, normal turgor, warm/dry. negative: rash - NEUROLOGIC Neurologic: rice dryer mechanic II-XII nml as tested, grossly normal, no motor/sensory deficits - PSYCHIATRIC Psych/Mental Status: normal mood/affect, normal thought content Progress - PLAN OF CARE/RESULTS Progress/Plan/Lab Results: Vital Signs - 8 hr 01/09/19 18:06 Temperature 97.8 F Pulse Rate 111 H Respiratory Rate 18 Blood Pressure 194/94 O2 Sat by Pulse Oximetry 98 Result Diagrams: 01/09/19 18:30 - CHANGE OF SHIFT REPORT (ED Provider) 1 Report Given and Care Transferred to:: Jose M Time of Transfer: 19:00 Departure - Departure Referrals and Follow-Ups: None,PCP [Primary Care Provider] -
[2019-01-09] MEDS ORDERED: PHENERGAN IV ONE (18:27)
[2019-01-09] MEDS ORDERED: NS 1,000 ML IV ONE (18:27)
[2019-01-09] MEDS ORDERED: SODIUM CHLORIDE 0.9% INJ ONE (18:28)
[2019-01-09 18:39] LABS: BASO# 0.02 X1000 (0.0-0.2); BASO% 0.2 % (0.0-0.8); EOS# 0.01 X1000 (0.0-0.7); EOS% 0.1 % (0.0-10.0); HEMATOCRIT 42.4 % (37.0-47.0); HEMOGLOBIN 13.9 g/dL (12.0-16.0); LYMPH# 0.74 X1000 (1.2-3.4); LYMPH% 8.9 % (20.5-51.1); MCH 26.2 PG (27-31); MCHC 32.8 g/dL (33-37); MCV 79.8 FL (81-99); MONO# 0.19 X1000 (0.11-0.59); MONO% 2.3 % (1.7-9.3); MPV 8.7 FL (7.4-10.4); NEUT# 7.34 X1000 (1.4-6.5); NEUT% 88.5 % (42.2-75.2); PLT 513 X1000 (130-400); RBC 5.31 XMIL (4.2-5.4); RDW 17.4 % (11.5-14.5)
[2019-01-09 19:02] LABS: ANISOCYTOSIS OCCASIONAL; LYMPHS 7 % (21-51); MONO 3 % (1-9); SEGS 88 % (42-75)
[2019-01-09 19:03] LABS: AGAP 17; ALB/GLOB RATIO 1.4; ALBUMIN 4.9 g/dL (3.5-5.0); ALKALINE PHOSPHATASE 114 U/L (32-104); AMYLASE 54 U/L (20-200); BUN 15 mg/dL (8-22); CALCIUM 10.6 mg/dL (8.8-10.2); CHLORIDE 94 mmol/L (98-107); COSMO 279; CREATININE 0.8 mg/dL (0.5-0.9); ESTIMATED GFR > 60; GLUCOSE 143 mg/dL (70-104); GOT 23 U/L (10-30); GPT 17 U/L (10-36); LIPASE 44 U/L (13-60); MAGNESIUM 1.9 mg/dL (1.5-2.7); POTASSIUM 3.9 mmol/L (3.5-5.1); SODIUM 138 mmol/L (136-145); TCO2 27 mmol/L (25-35); TOTAL BILIRUBIN 0.41 mg/dL (0.20-1.00); TOTAL PROTEIN 8.3 g/dL (6.3-8.3)
[2019-01-09] MEDS ORDERED: APRESOLINE IV ONE (19:13)
[2019-01-09 19:47] LABS: URINE SOURCE CLEAN CATCH
[2019-01-09 19:51] LABS: BILIRUBIN URINE NEGATIVE (NEGATIVE); BLOOD URINE NEGATIVE (NEGATIVE); COLOR ORANGE; GLUCOSE URINE NEGATIVE (NEGATIVE); KETONE URINE 40 mg/dL (NEGATIVE); LEUKOCYTES URINE NEGATIVE (NEGATIVE); NITRITE URINE NEGATIVE (NEGATIVE); PH URINE 8.5; PROTEIN URINE 300 mg/dL (NEGATIVE); SP GRAVITY URINE 1.008; TURBIDITY URINE TURBID (CLEAR); UR EPITHELIAL CELLS <10 /HPF (<10); URINE BACTERIA NEGATIVE /HPF; URINE RBC <10 /HPF (<10); URINE WBC <10 /HPF (<10); UROBILINOGEN URINE NORMAL (NORMAL)
[2019-01-09] MEDS ORDERED: ZOFRAN IV ONE (20:02)
--- NOTE | 2019-01-09 20:32 | Diag Imaging Result Doc PS360 ---
CT HEAD W/O CONTRAST - 01/09/2019 INDICATION: intractable nausea, vomiting, elevated BP COMPARISON: None FINDINGS: There is minimal periventricular white matter chronic microvascular disease. The ventricles and sulci are normal in size and contour. No intracranial mass or hemorrhage. The skull is intact. The sinuses mastoids and middle ears are clear. IMPRESSION: No acute disease. This exam was performed using automated exposure control, adjustment of mA or kV according to patient size, and/or use of iterative reconstruction technique Electronically signed by Evangelist Donohue 01/09/2019 8:29 PM
[2019-01-09] MEDS ORDERED: REGLAN IV ONE (21:23)
[2019-01-09] MEDS ORDERED: NS 1,000 ML IV SCH (22:09)
[2019-01-09] MEDS: ZOFRAN IV PRN (22:10)
[2019-01-09] MEDS ORDERED: COMPAZINE IV ONE (23:57)
--- NOTE | 2019-01-10 01:07 | HISTORY AND PHYSICAL ---
PRIMARY CARE PHYSICIAN: Dr. Ramos. CHIEF COMPLAIN IS: Intractable nausea and vomiting. HISTORY OF PRESENT ILLNESS: A 73-year-old female with a history of hypertension, hyperlipidemia and GERD presented to emergency department with several days history of worsening intractable nausea. The patient had similar symptoms several months ago and was admitted and had complete workup which was unremarkable. She states that she began to vomit more than 6 episodes and she did not feel well. She was evaluated in the emergency department. Due to her presenting symptoms, it was thought that we will place her for observation for further evaluation and management. At time of my examination, patient denied any headache, fever, chills, chest pain, shortness of breath, hemoptysis or weight changes, but complained of nausea and vomiting. PAST MEDICAL HISTORY: Hypertension, hyperlipidemia, GERD. PAST SURGICAL HISTORY: Right knee arthroplasty, right shoulder arthroplasty, hysterectomy, appendectomy. ALLERGIES: Hydrocodone and meperidine. CURRENT MEDICATIONS: Atorvastatin 20 mg p.o. at bedtime, famotidine 20 mg p.o. at bedtime, methocarbamol 1 to 2 tablets p.o. q.6 hours, Micardis 40 mg p.o. daily, tramadol 50 mg p.o. q.6 hours. SOCIAL HISTORY: No history of smoking. Admits to drinking vodka about 3 to 4 drinks a night. Denies any illicit drug use. FAMILY HISTORY: No history of coronary artery disease. REVIEW OF SYSTEMS: Fourteen point review of systems as listed in HPI. Other systems negative. PHYSICAL EXAMINATION: GENERAL: Cooperative, friendly female. She is resting more comfortably now. VITAL SIGNS: Temperature 97.8 degrees, pulse 111, respiration 18, blood pressure 194/94. She is saturating 98%. HEENT: Atraumatic, normocephalic. Extraocular movements intact. PERRLA. NECK: Supple. CHEST: Clear to auscultation. CARDIOVASCULAR: Regular rate and rhythm. S1 and S2. ABDOMEN: Soft. Some mild tenderness. EXTREMITIES: No edema. NEUROLOGIC: She is awake, alert, oriented x3. GENITOURINARY: No bladder distention. SKIN: Warm. LABORATORIES AND STUDIES: WBCs 8.30, hemoglobin 13.9, hematocrit 42.4, platelets 513,000. Sodium 138, potassium 3.9, chloride 94, CO2 of 27, BUN is 15, creatinine 0.8, glucose is 143. UA is nitrite negative. Head CT was done and was negative. ASSESSMENT: This is a 73-year-old female with a history of hypertension, hyperlipidemia, and gastroesophageal reflux disease, who had presented to emergency department with several days history of worsening nausea, vomiting. She was evaluated in the emergency department and was given antiemetics. However, she continued to have nausea and vomiting. Subsequently, she will require admission for further management. 1. Intractable nausea and vomiting. 2. Hypertension. 3. Hyperlipidemia. 4. Gastroesophageal reflux disease. PLAN: 1. We will admit patient to medical floor with telemetry. 2. We will keep patient NPO. Continue with antiemetics, and IV fluids and other supportive treatment. 3. We will reconsult Gastroenterology. 4. Monitor blood pressure closely. 5. Restart home medications once stable. 6. Put patient on DVT prophylaxis with SCDs. 7. Continue to follow, and reassess and make further recommendation based on patient's clinical course. cc: Zach Gifford MD
[2019-01-10] MEDS ORDERED: SODIUM CHLORIDE 0.9% INJ SCH (07:45)
[2019-01-10] MEDS: MIRALAX PO SCH ×2 (08:32→08:35)
[2019-01-10] MEDS: PROTONIX IV SCH ×2 (08:32→09:30)
[2019-01-10] MEDS: NS 1,000 ML IV SCH (08:32)
--- NOTE | 2019-01-10 09:20 | Diag Imaging Result Doc PS360 ---
EXAM: ABDOMEN FLAT/UPRIGHT HISTORY: abdominal pain TECHNIQUE: Flat and upright, two views COMPARISON: None. FINDINGS: No free air beneath the diaphragm. Moderate scoliosis with degenerative spine changes. No bowel obstruction. No organomegaly. There are several pelvic phleboliths. Moderate atherosclerosis. IMPRESSION: No acute abnormality. Electronically signed by Kvng Macdonald 01/10/2019 9:18 AM
[2019-01-10] MEDS: CENTRUM SILVER PO SCH (09:24)
[2019-01-10] MEDS: VITAMIN B-1 PO SCH (09:25)
--- NOTE | 2019-01-10 09:45 | GASTROENTEROLOGY CONSULTATION ---
DATE: 01/10/2019 ORDERING PHYSICIAN: Malinda Dejesus MD PRIMARY CARE DOCTOR: None. REASON FOR CONSULTATION: Nausea, vomiting. HISTORY OF PRESENT ILLNESS: Mr. Jacobs is a 73-year-old female who was admitted on 01/09/2019 for intractable nausea, vomiting. She had a similar admission a few weeks ago. At that time, she had EGD done by Dr. Spears and it showed normal EGD and gastric biopsies also showed inactive gastritis. The patient continues to have intractable symptoms. She has never had a colonoscopy in the past. She had a negative Cologuard done per her primary care doctor. He denies any vomiting blood. She has history of chronic constipation. She takes [id number] laxatives for helping with her bowels. PAST MEDICAL HISTORY: Hypertension, hyperlipidemia, GERD, chronic constipation. PAST SURGICAL HISTORY: Right knee arthroplasty. Right shoulder arthroplasty. Hysterectomy. Appendectomy. ALLERGIES: Hydrocodone. Meperidine. MEDICATIONS IN THE HOSPITAL: Dulcolax 10 mg per rectal at bedtime, normal saline mL/hour, Zofran, Protonix once daily, MiraLAX once daily. She is currently NPO. REVIEW OF SYSTEMS: Denies any fevers, rigors, chills, chest pain, shortness of breath, dyspnea. Denies any vomiting blood, passing blood in the stools. Does complain of constipation. Denies any other neurologic complaints. SOCIAL HISTORY: No history of smoking. She admits drinking vodka 3 to 4 drinks a night and denies any illicit drug abuse. FAMILY HISTORY: Denies any history of colon cancer. Her grandmother had diverticulitis. WEIGHT: Body weight of 115 pounds 5 ounces. BMI 22.5 kg/m2. PHYSICAL EXAMINATION: Vitals: Temperature 99.5 degrees, pulse rate 116, respiratory rate 12, blood pressure 193/93, saturating 98% on room air. General: Thinly built, lying in bed, in no acute distress. HEENT: No pallor. No icterus. Pupils equal, reactive to light. Neck: Supple. Abdomen: Soft, nontender, nondistended. No guarding or rebound. Extremities: No cyanosis, clubbing. Neurologic: Alert, awake, oriented. LABORATORIES: Hemoglobin and hematocrit is 13.9 and 42.4, white count of 8.3, platelet count of 513,000. Sodium 130, potassium 3.9, chloride 94, bicarb 27, anion gap of 17, BUN of 15, creatinine 0.8, glucose of 143, calcium is 10.6, magnesium 1.9. Total bilirubin is 0.41, AST 23, ALT 17, alkaline phosphatase 114, total protein is 8.3, albumin of 4.9. Urinalysis showing positive protein and positive ketones. Amylase of 54, lipase of 44, alkaline phosphatase slightly higher 114. IMAGING: Ultrasound of the abdomen done on 11/27/2018 showed essentially unremarkable right upper quadrant ultrasound, the common bile duct measuring 7.7 mm and simple cyst within the right kidney measuring 2.5 cm. No hydronephrosis. She had a CT scan done on 11/27/2018 which showed solitary right kidney, diverticulosis coli and no acute process. She has head CT done this admission which showed no acute disease. IMPRESSION AND PLAN: 1. Intractable nausea, vomiting. Unclear etiology. We will continue with IV fluids, IV antiemetics. We will start on clear liquid diet today. Her ultrasound has been negative for any gallbladder pathology. EGD was also negative. 2. Constipation. We will start on MiraLAX and Dulcolax and during the hospital course we will schedule her for colonoscopy tomorrow to evaluate for any kind of colonic pathology which may be contributing to her constipation and may be causing nausea and vomiting. 3. Diverticulosis in the colon. She will continue to avoid excessive corn, nuts, seeds in diet. 4. DVT prophylaxis. Sequential Compression Devices. 5. GI prophylaxis. Proton pump inhibitor. 6. Alcoholism. She is drinking 3 to 4 drinks a night. We will watch for withdrawal. We will start her on multivitamin once daily. We will executive assistant to general counsel the patient on reducing the alcohol intake. 7. Above plans were discussed with the patient and all questions answered. Please call us with any further questions. cc: MD Malinda Castaneda MD [facility]
[2019-01-10 09:49] LABS: HEMOGLOBIN 13.3 g/dL (12.0-16.0); MCHC 32.4 g/dL (33-37); MCV 80.2 FL (81-99); MPV 8.6 FL (7.4-10.4); RBC 5.11 XMIL (4.2-5.4); RDW 18.1 % (11.5-14.5); WBC 12.42 X1000 (4.8-10.8)
[2019-01-10 11:05] LABS: AGAP 14; BUN 11 mg/dL (8-22); CALCIUM 9.1 mg/dL (8.8-10.2); CHLORIDE 96 mmol/L (98-107); COSMO 274; CREATININE 0.6 mg/dL (0.5-0.9); ESTIMATED GFR > 60; GLUCOSE 145 mg/dL (70-104); POTASSIUM 2.9 mmol/L (3.5-5.1); SODIUM 136 mmol/L (136-145); TCO2 26 mmol/L (25-35)
[2019-01-10] MEDS ORDERED: KLOR-CON PO ONE (11:27)
[2019-01-10] MEDS ORDERED: TYLENOL PO PRN (11:47)
[2019-01-10] MEDS ORDERED: GOLYTELY PO ONE (14:00)
--- NOTE | 2019-01-10 14:22 | PROGRESS NOTE ---
DATE: 01/10/2019 SUBJECTIVE: The patient is resting comfortably. She states that she is not feeling nauseous at this time. She was able to eat a clear liquid diet without any difficulty. OBJECTIVE: Vital Signs: Temperature 99.5 degrees, blood pressure 151/80, heart rate 108, respirations 18, O2 saturation is 99% on room air. General: This is a chronically ill-appearing female lying in bed, in no acute distress. Heart: S1, S2 normal. Lungs: Equal air entry bilaterally. Abdomen: Positive bowel sounds. Soft, nontender, nondistended. Extremities: No edema. No cyanosis. Neurologic: The patient is alert and oriented x3. LABS: White blood cell count 12, hemoglobin 13, hematocrit 41, platelets 517,000. Sodium 136, potassium 2.9, chloride 96, CO2 26, BUN 11, creatinine 0.6, glucose 145. ASSESSMENT AND PLAN: 1. Intractable nausea and vomiting. Continue with IV fluids. GI is following. The patient is scheduled to undergo a colonoscopy tomorrow. 2. Hypertension. Will start the patient on Coreg. 3. Leukocytosis. We will order blood cultures. Will also check a chest x-ray. 4. Deep vein thrombosis prophylaxis. Will start the patient on SCDs. cc: Malinda Dejesus MD MTDD
--- NOTE | 2019-01-10 14:32 | Diag Imaging Result Doc PS360 ---
EXAM: CHEST-2 VIEWS HISTORY: hypoxia TECHNIQUE: Chest two views COMPARISON: 11/27/2018 FINDINGS: The lungs are hyperexpanded. The heart is not enlarged. The vessels are small. There are no infiltrates. No pleural effusions. Mild scoliosis with degenerative spine changes. Prominent atherosclerosis. Orthopedic replacement of the right shoulder. IMPRESSION: Stable chest. Electronically signed by Kvng Macdonald 01/10/2019 2:30 PM
[2019-01-10] MEDS ORDERED: DULCOLAX PR SCH (21:00)
[2019-01-11] MEDS: NS 1,000 ML IV SCH ×2 (00:48→12:53)
[2019-01-11] MEDS: ZOFRAN IV PRN (00:53)
[2019-01-11] MEDS ORDERED: LABETALOL IV ONE (01:10)
[2019-01-11] MEDS: COMPAZINE IV PRN ×2 (03:53→13:54)
[2019-01-11 08:00] LABS: HEMATOCRIT 41.1 % (37.0-47.0); HEMOGLOBIN 13.3 g/dL (12.0-16.0); MCHC 32.4 g/dL (33-37); MCV 80.3 FL (81-99); MPV 8.8 FL (7.4-10.4); RBC 5.12 XMIL (4.2-5.4); WBC 9.13 X1000 (4.8-10.8)
[2019-01-11 08:30] LABS: AGAP 15; BUN 7 mg/dL (8-22); CALCIUM 8.3 mg/dL (8.8-10.2); CHLORIDE 95 mmol/L (98-107); COSMO 267; CREATININE 0.5 mg/dL (0.5-0.9); ESTIMATED GFR > 60; GLUCOSE 105 mg/dL (70-104); POTASSIUM 2.6 mmol/L (3.5-5.1); SODIUM 134 mmol/L (136-145); TCO2 24 mmol/L (25-35)
[2019-01-11] MEDS: PROTONIX IV SCH (09:22)
[2019-01-11] MEDS ORDERED: DIPRIVAN 1% ONE ×2 (09:49→10:18)
[2019-01-11] MEDS: VITAMIN B-1 PO SCH (11:22)
[2019-01-11] MEDS: MIRALAX PO SCH (11:22)
[2019-01-11] MEDS: CENTRUM SILVER PO SCH (11:22)
--- NOTE | 2019-01-11 11:37 | OPERATIVE NOTE ---
PROCEDURE DATE: 01/11/2019 COLONOSCOPY: PROVIDER: Ric Spears MD INDICATIONS: Nausea, vomiting, constipation. MEDICATIONS: Monitored anesthesia care. DETAILS OF OPERATION: Prior to the procedure, a history and physical was performed, and patient's medications and allergies were reviewed, the patient's tolerance to previous anesthesia was also reviewed. The risks and benefits of the procedure and the sedation options and risks were discussed with the patient. All questions were answered. Informed consent was obtained. After reviewing the risks and benefits, the patient was deemed in satisfactory condition to undergo the procedure. The colonoscope was introduced under direct visualization. The adult colonoscope was switched to a pediatric colonoscope given significant looping within the sigmoid colon. Throughout the procedure, the patient's blood pressure, pulse and oxygen saturation were monitored continuously. The colonoscope was introduced through the anus and advanced to the cecum, identified by the appendiceal orifice and ileocecal valve. The colonoscopy was accomplished with moderate difficulty. The quality of the prep was adequate. The patient tolerated the procedure well. COMPLICATIONS: No immediate complications. ESTIMATED BLOOD LOSS: None. FINDINGS: The patient has a tortuous colon, internal hemorrhoids that are small. IMPRESSION: Internal hemorrhoids. RECOMMENDATIONS: Resume cardiac diet. Continue bowel regimen. The patient is okay from a GI perspective to be discharged. No need for repeat colonoscopy given patient is advanced age. We will sign off. Please call with questions.
[2019-01-11 16:10] VITALS: BP 118/61
--- NOTE | 2019-01-11 17:30 | DISCHARGE SUMMARY ---
ADMISSION DATE: 01/09/2019 DISCHARGE DATE: 01/11/2019 HISTORY: This is a 73-year-old who has no primary care physician at that present time, although I think she has been followed by Dr. Ramos in the past, came in with intractable nausea and vomiting. This is a 73-year-old with a history of hypertension, hyperlipidemia, gastroesophageal reflux, presented to the emergency department several day history of worsening intractable nausea. The patient has had similar symptoms several years ago, was admitted, and had a complete workup which was unremarkable. She states that she began to vomit more than 3 episodes and she did not feel well. Evaluated in the emergency department. Due to her presenting symptoms, they placed her in observation, admitted her once again. PAST MEDICAL HISTORY: Hypertension, hyperlipidemia, gastroesophageal reflux disease. PAST SURGICAL HISTORY: Right knee arthroplasty, right shoulder arthroplasty, hysterectomy and appendectomy. HOSPITAL COURSE: So admitted to the hospital. Lab was unremarkable. Hematocrit 42, hemoglobin 13, white blood cell count 8,300, platelet count 513,000. Electrolytes, kidney function, and liver functions all looked very good. Amylase was 54. The patient's nausea improved with IV fluids. She was tolerating regular food. Dr. Spears did a colonoscopy, no complications, really no findings. The patient has a torturous colon, internal hemorrhoids that are small, and so felt she was okay for discharge. Did not find any significant pathology. So will discharge her home and continue her on her previous medications. MEDICATIONS: She is on Lipitor 20 mg a day, famotidine 20 mg at bedtime. We will have her stop the ibuprofen. Losartan hydrochlorothiazide 50/12.5 one a day, methocarbamol 1 to 2 q.6 hours p.r.n. She has her Zofran that she uses at home p.r.n. and she has Ultram 50 mg q.4-6 hours. cc: Nahun Mcnulty MD
== END 2019-01-11 18:09 | disposition home or self-care (01) ==
LOC: 3N 17:54 → ED 17:54 → SUATTDRO 21:36
PROVIDERS: ATTEND Emergency Medicine
CPT/HCPCS: 70450; 71020; 71046; 74019; 74020; 80048; 80053; 81001; 82150; 83690; 83735; 85025; 85027; 85651; 86140; 87040; 96374; 96375; 99285; A9270; C9113; J0360; J0780; J2405; J2550; J2765; J7030; S0164

== ENCOUNTER 2019-11-22 19:40 | Inpatient (IN) ==
[2019-11-22] MEDS ORDERED: NS 1,000 ML IV ONE (20:29)
[2019-11-22] MEDS ORDERED: ZOFRAN IV ONE (20:29)
[2019-11-22 21:25] LABS: BASO# 0.03 X1000 (0.0-0.2); BASO% 0.1 % (0.0-0.8); EOS# 0.02 X1000 (0.0-0.7); EOS% 0.1 % (0.0-10.0); HEMATOCRIT 42.2 % (37.0-47.0); HEMOGLOBIN 13.5 g/dL (12.0-16.0); IMM GRAN# 0.05 X1000 (0.0-0.04); IMM GRAN% 0.2 % (0.0-0.5); LYMPH# 1.27 X1000 (1.2-3.4); MCH 24.8 PG (27-31); MCV 77.6 FL (81-99); MONO# 1.23 X1000 (0.11-0.59); MONO% 5.8 % (1.7-9.3); MPV 9.1 FL (7.4-10.4); NEUT# 18.65 X1000 (1.4-6.5); NEUT% 87.8 % (42.2-75.2); PLT 580 X1000 (130-400); RBC 5.44 XMIL (4.2-5.4); RDW 16.7 % (11.5-14.5); WBC 21.25 X1000 (4.8-10.8)
[2019-11-22 21:39] LABS: LYMPHS 4 % (21-51); MONO 6 % (1-9); SEGS 90 % (42-75)
[2019-11-22 21:41] LABS: ALB/GLOB RATIO 2.1; CALCIUM 10.1 mg/dL (8.8-10.2); CREATININE 1.6 mg/dL (0.5-0.9); TOTAL BILIRUBIN 0.64 mg/dL (0.20-1.00); TOTAL PROTEIN 7.4 g/dL (6.3-8.3)
[2019-11-22 22:18] LABS: URINE SOURCE CATH
[2019-11-22 22:22] LABS: BILIRUBIN URINE NEGATIVE (NEGATIVE); BLOOD URINE LARGE (NEGATIVE); COLOR YELLOW; GLUCOSE URINE TRACE mg/dL (NEGATIVE); KETONE URINE TRACE mg/dL (NEGATIVE); LEUKOCYTES URINE NEGATIVE (NEGATIVE); NITRITE URINE NEGATIVE (NEGATIVE); PROTEIN URINE 300 mg/dL (NEGATIVE); SP GRAVITY URINE 1.024; TURBIDITY URINE HAZY (CLEAR); UR EPITHELIAL CELLS <10 /HPF (<10); URINE BACTERIA NEGATIVE /HPF; URINE RBC <10 /HPF (<10); URINE WBC <10 /HPF (<10); UROBILINOGEN URINE NORMAL (NORMAL)
[2019-11-22] MEDS ORDERED: NS 1,000 ML IV SCH (23:45)
[2019-11-23] MEDS ORDERED: APRESOLINE IV ONE (00:25)
--- NOTE | 2019-11-23 00:32 | PROVIDER DOCUMENTATION ---
This chart was entered by Adelaide Manzano Scribe, acting as scribe for Walter Burnett MD. HPI-Abdominal Pain/GI Problem - General Chief Complaint: N/V/D Stated Complaint: nausea/vomiting Time Seen by Provider: 11/22/19 19:59 Source: patient, EMS (first response) Allergies/Adverse Reactions: Patient Allergies Allergy/AdvReac Type Severity Reaction Status Date / Time hydrocodone AdvReac VOMITING Verified 11/22/19 20:05 meperidine [From Demerol] AdvReac VOMITING Verified 11/22/19 20:05 Home Medications: Home Medication List Medication Instructions Recorded Confirmed Last Taken Type ATORVAstatin [Lipitor] 20 mg PO QHS 09/28/18 11/22/19 2 Days Ago History ~01/08/19 Famotidine 20 mg PO HS 09/28/18 11/22/19 10/05/18 22:00 History Methocarbamol 1 - 2 tab PO Q6HR PRN 09/28/18 11/22/19 10/05/18 15:00 History Tramadol [Ultram] 50 mg PO Q4-6H PRN PRN 09/28/18 11/22/19 10/05/18 15:00 History Losartan/Hctz [Hyzaar 50/12.5 mg] 1 tab PO DAILY 01/10/19 11/22/19 2 Days Ago History ~01/08/19 - History of Present Illness-ABD Nature of Presenting Problems: 74 yowf presents to the ed via ems with c/o nausea and vomiting acute onset yesterday at 1100am. pt admits to daily drinking vodka and reports she drinks about 2 drinks a day. pt denies abdominal pain and has abrasion noted to left knee from fall yesterday. pt has elevated BP but denies any pain Quality of Pain: reports: none Severity in ED: reports: mild Onset/Duration: reports: other (yesterday at 1100am) Timing: reports: intermittent Activities at Onset: reports: light activity Exposure to sick contacts?: No Modifying Factors: worse with: eating Associated Symptoms: reports: nausea, vomiting. denies: back/neck pain, chest pain, cough, diarrhea, headaches, heartburn, shortness of breath Last BM: last night Dark Stools Present?: reports: none noticed Rectal Bleeding: reports: none # of Diarrhea Episodes: 0 Rectal Pain: reports: none # of Vomiting Episodes: 10 Bruising or Bleeding Gums?: No Similar Symptoms Previously?: Yes Recently seen or treated by another doctor?: No Review of Systems - Adult - REVIEW OF SYSTEMS - ADULT Constitutional: reports: no symptoms reported Eyes: reports: no symptoms reported Ears, Nose, Mouth & Throat: reports: no symptoms reported Cardiovascular: denies: chest pain, palpitations Respiratory: denies: cough, shortness of breath, wheezing Gastrointestinal: reports: see HPI, nausea, vomiting. denies: abdominal pain, diarrhea Genitourinary: reports: no symptoms reported Musculoskeletal: reports: see HPI. denies: back pain, joint pain (abrasion noted from fall yesterday), neck pain Integumentary: reports: no symptoms reported Neurological: reports: no symptoms reported Psychiatric: reports: see HPI, alcohol/drug dependence (etoh) Endocrine: reports: no symptoms reported Hematologic/Lymphatic: reports: no symptoms reported Allergic/Immunologic: reports: no symptoms reported All Other Systems: Reviewed and Negative Past History - Adult - PAST MEDICAL HISTORY-ADULT Review of Records: reports: Old Records Reviewed, Nursing Assessment Review, Medications Reviewed, Social history reviewed & non-contributory. Major Childhood Illnesses: reports: denies history Cardiovascular: reports: HTN Respiratory: reports: denies history Gastrointestinal: reports: denies history Obstetrical/Gynecological: reports: denies history Genitourinary: reports: other (has only 1 kidney) Musculoskeletal: reports: denies history Neurological: reports: denies history Psychiatric: reports: denies history Endocrine/Immune: reports: denies history Other Conditions: reports: denies history - PRIOR SURGERIES/PROCEDURES Surgical/Procedure History: reports: appendectomy, hysterectomy, tonsillectomy, joint replacement, other (kidney removed) - IMMUNIZATION STATUS Childhood Immunizations: See Nurse Assessment Flu Vaccine: See Nurse Assessment - FAMILY HISTORY Family History: reviewed, not pertinent - SOCIAL HISTORY Smoking: quit greater than 1 year Substance Use: alcohol Alcohol Use Frequency: every day Number of drinks per typical drinking period:: 2 drinks (vodka) Living Situation: alone Physical Exam-General - PHYSICAL EXAM-ADULT Initial Vital Signs Reviewed: Yes (noted BP 150/100 HR-104 temp-99.8 ) - CONSTITUTIONAL General Appearance: appears well, alert, no apparent distress (pt is nontoxic in appearance) - EYES Eyes: PERRL/EOMI, pink conjunctivae - HEAD, EARS, NOSE, MOUTH & THROAT HENMT: moist mucous membranes - NECK Neck: non-tender, full range of motion, supple, normal inspection - RESPIRATORY Respiratory: chest non-tender, lungs clear, normal breath sounds - CARDIOVASCULAR Cardiovascular: normal peripheral pulses, tachycardia (104) - CHEST (BREASTS) Chest/Breast: deferred - GASTROINTESTINAL (ABDOMEN) Abdominal Exam: normal bowel sounds, non tender, soft, other (c/o nausea) - GENITOURINARY Female Genitalia/Pelvic Exam: deferred Rectal Exam: deferred Hemoccult Exam: deferred - MUSCULOSKELETAL Back Exam: normal inspection, no CVA tenderness, no vertebral tenderness Extremity: normal range of motion, normal capillary refill, pelvis stable, tenderness (left knee), other (abrasion noted to left knee from fall yesterday) - SKIN Integumentary: normal color, normal turgor, warm/dry, abrasion(s) (left knee only) - NEUROLOGIC Neurologic: grossly normal - PSYCHIATRIC Psych/Mental Status: normal mood/affect, normal thought content, normal thought process, oriented x 3 Progress - PLAN OF CARE/RESULTS Progress/Plan/Lab Results: Vital Signs - 8 hr 11/22/19 19:55 Temperature 99.8 F H Pulse Rate 101 H Respiratory Rate 17 Blood Pressure 182/109 O2 Sat by Pulse Oximetry 98 Orders Category Date Time Status ALCOHOL BLOOD Stat Lab 11/22/19 20:13 Uncollected CBC WITH DIFF [HEME] Stat Lab 11/22/19 20:13 Uncollected COMPREHENSIVE METABOLIC PANEL [CHEM] Stat Lab 11/22/19 20:13 Uncollected Result Diagrams: 11/22/19 19:59 11/22/19 19:59 - CONSULTS/PCP/HOSPITALIST Notification #1 *Consult/PCP/Hospitalist*: Okinedo Time Discussed: 00:30 Reason/Comments: requests lipase, CT abd Consult Disposition: Will see in ED, Admit Departure - Departure Date of Disposition Decision: 11/23/19 Time of Disposition Decision: 00:31 DIAGNOSIS: Vomiting, Acute kidney injury Disposition: ADMITTED INPATIENT 09 Certified Medical Emergency: Emergent Condition: Good - Critical Care Note This patient required my direct & personal management of CC.: No Attestation - Physician/ NICK Attestation Patient care was provided by Advanced Practice Provider:: No The physician spent face to face time with patient:: Yes Advanced Practice Provider documentation review:: Supervising physician onsite and consulted in the evaluation and care of this patient. The physician did have a face to face encounter with the patient. This chart was documented by the indicated scribe, (Adelaide Manzano Scribe) and accurately reflects the services I performed and decisions made by me, Walter Burnett MD, as attested by the provider's signature.
[2019-11-23] MEDS ORDERED: LABETALOL IV ONE (01:01)
[2019-11-23] MEDS ORDERED: PROTONIX IV ONE (01:05)
[2019-11-23] MEDS ORDERED: SODIUM CHLORIDE 0.9% INJ ONE ×2 (01:05→07:33)
[2019-11-23] MEDS ORDERED: ULTRAM PO PRN (03:13)
[2019-11-23] MEDS ORDERED: ZOFRAN IV PRN (03:13)
[2019-11-23] MEDS ORDERED: CATAPRES PO ONE (03:27)
[2019-11-23] MEDS: NS 1,000 ML IV SCH ×2 (03:38→13:20)
[2019-11-23] MEDS: ATIVAN IV PRN ×2 (03:51→22:28)
[2019-11-23] MEDS: THIAMINE 100 MG in NS 50 ML IV SCH (03:51)
[2019-11-23 04:02] LABS: MAGNESIUM 2.3 mg/dL (1.5-2.7); PHOSPHORUS 5.1 mg/dL (2.7-4.5)
[2019-11-23] MEDS: APRESOLINE IV SCH ×4 (04:49→22:28)
[2019-11-23 06:10] LABS: BASO# 0.01 X1000 (0.0-0.2); BASO% 0.1 % (0.0-0.8); HEMATOCRIT 40.1 % (37.0-47.0); HEMOGLOBIN 12.7 g/dL (12.0-16.0); IMM GRAN# 0.04 X1000 (0.0-0.04); IMM GRAN% 0.2 % (0.0-0.5); LYMPH# 1.07 X1000 (1.2-3.4); LYMPH% 6.1 % (20.5-51.1); MCH 24.9 PG (27-31); MCHC 31.7 g/dL (33-37); MCV 78.6 FL (81-99); MONO# 0.87 X1000 (0.11-0.59); MPV 8.8 FL (7.4-10.4); NEUT# 15.48 X1000 (1.4-6.5); NEUT% 88.6 % (42.2-75.2); PLT 467 X1000 (130-400); RDW 16.9 % (11.5-14.5); WBC 17.47 X1000 (4.8-10.8)
--- NOTE | 2019-11-23 06:23 | HISTORY AND PHYSICAL ---
CHIEF COMPLAINT: Nausea, vomiting, diarrhea. HISTORY OF PRESENT ILLNESS: A 74-year-old female who comes into the emergency room with nausea and vomiting and diarrhea with an acute onset yesterday at 11:00 a.m. States that she has had multiple episodes over the day. She does drink a couple of alcohol drinks daily, she states usually vodka. She denies any abdominal pain. She does have an abrasion noted to her left knee from a fall yesterday. She denies any type of pain. States that she is not having chest pain, cough, headaches or shortness of breath. She also denied any hematochezia, melena, hematemesis. She really has no past medical history other than hypertension. She has had a nephrectomy so she has a solitary kidney. Normally her creatinine as recently as last year is within normal limits. She does have an acute kidney injury. She will placed on the floor for further evaluation and treatment. PAST MEDICAL HISTORY: Hyperlipidemia, hypertension, daily alcohol use. PREVIOUS SURGICAL HISTORY: Nephrectomy, appendectomy, hysterectomy, shoulder replacement. SOCIAL HISTORY: Two drinks a day. Was a previous smoker. Does not use tobacco anymore. No illicit drugs. Lives alone. FAMILY HISTORY: Mother and father both had hypertension. ALLERGIES: Meperidine and hydrocodone. HOME MEDICATIONS: Losartan/hydrochlorothiazide 50/12.5, methocarbamol 750 one to two q.6., atorvastatin 20 mg p.o. nightly, famotidine 20 mg p.o. nightly, Ultram 50 mg p.o. q.4 to 6 p.r.n. REVIEW OF SYSTEMS: Fourteen-point review of systems conducted with the patient. Pertinent positive listed above in the HPI. All other systems are reviewed and found to be negative. PHYSICAL EXAMINATION: VITAL SIGNS: Temperature 98.6, pulse 92, respirations 19, blood pressure 164/98, oxygen saturation 100% on room air. GENERAL: Pleasant 74-year-old female lying on the bed. She is alert and oriented x3, in no acute distress. HEENT: Head is atraumatic, normocephalic. Pupils equal, round, reactive to light. Extraocular eye movement is intact. Sclera is anicteric. Conjunctiva is pink. Oral mucosa is dry. NECK: Supple. No JVD. No thyromegaly. Trachea is midline. No cervical lymphadenopathy. CARDIAC: S1, S2 appreciated. No murmurs, gallops, rubs. LUNGS: Clear to auscultation. No rhonchi, wheezes, rales. Symmetric rise and fall with respirations. ABDOMEN: Soft, nondistended, nontender. Bowel sounds present all 4 quadrants, normoactive. No pulsatile mass. No organomegaly. EXTREMITIES: No clubbing, cyanosis or edema, 2+ pedal pulses bilaterally. GENITOURINARY: No bladder distention. Patient voids. Otherwise deferred. NEUROLOGICAL: Alert and oriented x3. No focal motor deficits. Otherwise nonfocal examination. INTEGUMENTARY: Abrasion noted to left knee. DIAGNOSTIC DATA: CT of the abdomen and pelvis shows a small epigastric type filled hernia. Chest x-ray, no effusions, infiltrates or edema. LABORATORY DATA: WBC 21.25. Hemoglobin 13.5. Hematocrit 42.2. Platelet count 580. Sodium 134. Potassium 4. Chloride 89. Carbon dioxide 24. BUN 34. Creatinine 1.6. Glucose 114. Urine unremarkable. Serum alcohol negative. ASSESSMENT: 1. Intractable nausea and vomiting. 2. Leukocytosis. 3. Hypertension. 4. Hyperlipidemia. 5. Daily alcohol use. PLAN: Admit patient to [facility]. Her blood pressures are running high. Will place on clonidine. Will hold her atorvastatin hydrochlorothiazide combo drug as she is volume depleted. She received normal saline bolus in the emergency room. Will continue 100 mL an hour. Will give three doses of Thiamine 100 mg daily. Placed Ativan on her medication profile if she were to have any alcohol withdrawal. Will also place hydralazine 10 mg IV q.6.h. p.r.n. as needed for systolic blood pressure greater than 165. I believe it is possible that her leukocytosis is reactive. Will reevaluate lab work this morning before giving antibiotics. Further recommendations per patient clinical course. Dictated by LEAH Daniel for Eliseo Gomez MD cc: LEAH Dnaiel MD
--- NOTE | 2019-11-23 06:24 | Diag Imaging Result Doc PS360 ---
CHEST-PORTABLE - 11/22/2019 INDICATION: leukocytosis COMPARISON: 01/10/2019 FINDINGS: The lungs are normally expanded and clear. Heart size and mediastinal contours are normal. No pneumothorax or pleural effusion. Stable calcified granuloma in the right midlung. IMPRESSION: Negative exam. Electronically signed by Evangelist Donohue 11/23/2019 6:22 AM
[2019-11-23 06:34] LABS: CALCIUM 8.9 mg/dL (8.8-10.2); POTASSIUM 3.1 mmol/L (3.5-5.1)
--- NOTE | 2019-11-23 07:26 | Diag Imaging Result Doc PS360 ---
EXAM: CT ABDOMEN/PELVIS W/O CONTRAST 11/23/2019 HISTORY: vomiting TECHNIQUE: This exam was performed using automated exposure control, adjustment of mA or kV according to patient size, and/or use of iterative reconstruction technique. COMMENT: The current study is compared with 11/27/2018. The appearance of the visualized portion of the chest has not changed significantly. There is some retained fluid in the stomach as there was previously. There has been left nephrectomy. There is no evidence of hydronephrosis or nephrolithiasis on the right. There is a cyst in the anterior right kidney measuring 2.5 cm. This was also present previously. There are atherosclerotic calcifications in the aorta. No evidence of aneurysm is present. There is no evidence of bowel obstruction. There are no apparent gallstones. The spleen and adrenal glands are not enlarged. The pancreas and liver are grossly normal in appearance considering the lack of contrast. There is a small fat-containing ventral hernia. There is no evidence of free fluid. The urinary bladder is not distended. There are multiple phleboliths in the pelvis. There is some stool in the colon. There is no evidence of appendicitis. There is spondylosis in the visualized portions of the thoracic and lumbar spine there has been previous fusion and laminectomy in the lower lumbar spine. No acute bony abnormalities are present. IMPRESSION: No evidence of acute intra-abdominal or pelvic disease. The possibility of gastroenteritis cannot be excluded. Electronically signed by Chepe Urbano 11/23/2019 7:23 AM
[2019-11-23] MEDS ORDERED: KLOR-CON PO ONE (07:34)
[2019-11-23] MEDS: CATAPRES PO SCH ×3 (08:34→20:01)
[2019-11-23] MEDS: LOVENOX SUBQ SCH (08:37)
[2019-11-23] MEDS: PROTONIX IV SCH (08:37)
[2019-11-23] MEDS ORDERED: LIPITOR PO SCH (21:00)
[2019-11-23] MEDS ORDERED: PEPCID PO SCH (21:00)
[2019-11-24] MEDS: THIAMINE 100 MG in NS 50 ML IV SCH (02:14)
[2019-11-24] MEDS: APRESOLINE IV SCH (03:06)
[2019-11-24 06:09] LABS: BASO# 0.02 X1000 (0.0-0.2); BASO% 0.2 % (0.0-0.8); EOS# 0.05 X1000 (0.0-0.7); HEMOGLOBIN 10.4 g/dL (12.0-16.0); RDW 16.9 % (11.5-14.5)
[2019-11-24] MEDS ORDERED: SODIUM CHLORIDE 0.9% 10 ML ONE (06:40)
[2019-11-24 07:13] LABS: AGAP 14; BUN 18 mg/dL (8-22); CALCIUM 8.7 mg/dL (8.8-10.2); CHLORIDE 99 mmol/L (98-107); COSMO 262; CREATININE 0.7 mg/dL (0.5-0.9); ESTIMATED GFR > 60; GLUCOSE 92 mg/dL (70-104); POTASSIUM 4.1 mmol/L (3.5-5.1); SODIUM 130 mmol/L (136-145); TCO2 17 mmol/L (25-35)
[2019-11-24 07:26] LABS: EOS% 0.6 % (0.0-10.0); HEMATOCRIT 34.8 % (37.0-47.0); LYMPH# 1.84 X1000 (1.2-3.4); LYMPH% 20.4 % (20.5-51.1); MCH 24.4 PG (27-31); MCHC 29.9 g/dL (33-37); MCV 81.5 FL (81-99); MONO# 0.77 X1000 (0.11-0.59); MONO% 8.5 % (1.7-9.3); MPV 8.9 FL (7.4-10.4); NEUT# 6.33 X1000 (1.4-6.5); NEUT% 70.3 % (42.2-75.2); PLT 420 X1000 (130-400); RBC 4.27 XMIL (4.2-5.4); WBC 9.01 X1000 (4.8-10.8)
[2019-11-24] MEDS: CATAPRES PO SCH (08:38)
[2019-11-24] MEDS: PROTONIX IV SCH (08:38)
[2019-11-24] MEDS: LOVENOX SUBQ SCH (08:39)
[2019-11-24] MEDS ORDERED: APRESOLINE IV PRN (08:50)
[2019-11-24 11:14] VITALS: BP 109/73
--- NOTE | 2019-11-28 21:38 | DISCHARGE SUMMARY ---
ADMISSION DATE: 11/23/2019 DISCHARGE DATE: 11/24/2019 FINAL DISCHARGE DIAGNOSES: 1. Gastroenteritis. 2. Hypertension. 3. Alcohol dependence. 4. Hyperlipidemia. IMAGING: CT of the abdomen and pelvis performed on 11/23/2019 which revealed gastroenteritis. HOSPITAL COURSE: Ms Jacobs is a 74-year-old female with a history of left nephrectomy, alcohol dependence and hypertension who presented to the ER with nausea, vomiting and diarrhea. The patient was admitted to the hospitalist service. On admission, the patient was noted to be in acute kidney injury. The patient was started on IV fluids and antiemetic therapy with improvement in her symptoms. The patient's diet was slowly advanced. The patient did have a mild leukocytosis but this was thought to be secondary to the gastroenteritis. The patient was counseled about the importance of alcohol cessation. On the day of discharge the patient was able to tolerate a heart healthy diet without any nausea, vomiting, or diarrhea. Also, she was noted to have a BUN of 18 with a creatinine of 0.7. DISCHARGE MEDICATIONS: 1. Lipitor 20 mg oral at bedtime. 2. Famotidine 20 mg p.o. at bedtime. 3. Cozaar 25 mg oral daily. 4. Ultram 50 mg oral every 6 hours p.r.n. for pain. DISCHARGE DIET: Low-sodium, low-cholesterol diet. ACTIVITY: As tolerated. FOLLOWUP INSTRUCTIONS: The patient has been advised to follow up with a primary care physician in 1 to 2 weeks. cc: Malinda Dejesus MD
== END 2019-11-24 12:38 | disposition home or self-care (01) | DRG 684 ==
LOC: ED 19:40 → 2N 11-23 01:46 → SUATTDRO 11-23 01:46
PROVIDERS: ATTEND Internal Medicine